=== PATIENT | female | born 1985 | race Caucasian/White ===

== ENCOUNTER 2019-05-02 16:18 | Emergency (ER) | payer OTHER, SELFPAY ==
[2019-05-02 16:32] VITALS: BP 150/95; PULSE 98; RESP 20; TEMP 37.3; O2SAT 98
--- NOTE | 2019-05-02 17:02 | ED.GENADULT ---
HPI - General Adult General Chief complaint: Extremity Injury, Lower Stated complaint: feet sollen Time Seen by Provider: 05/02/19 17:02 Source: patient and RN notes reviewed History of Present Illness HPI narrative: Patient is a 34-year-old female that presents the urgent care with complaints of bilateral feet swelling. Patient states that she woke up this morning with her feet swelling and has been working a lot. Patient denies any shortness of breath or chest pain. Denies any history of congestive heart failure or bilateral lower extremity swelling. Denies of any trauma or injury. Patient states that she is elevated the feet and soak them in warm water. No other acute complaints. No acute distress noted. Patient aware the plan of care. Related Data Home Medications Medication Instructions Recorded Confirmed buspirone 5 mg PO DAILY 02/07/19 05/02/19 levothyroxine 25 mcg PO DAILY 02/07/19 05/02/19 sertraline 50 mg PO DAILY 02/07/19 05/02/19 ziprasidone HCl 20 mg PO DAILY 02/07/19 05/02/19 Allergies Allergy/AdvReac Type Severity Reaction Status Date / Time No Known Allergies Allergy Unknown Verified 01/03/19 08:57 Review of Systems Review of Systems: Narrative: CONSTITUTIONAL: Denies fever, chills, or sweats. EYES: Denies visual changes, redness, or discharge. ENT: Denies rhinorrhea, congestion, sore throat, or otalgia. CARDIOVASCULAR: Denies chest pain, palpitations, or edema. RESPIRATORY: Denies cough or dyspnea. GASTROINTESTINAL: Denies abdominal pain, nausea, vomiting, or diarrhea. GENITOURINARY: Denies dysuria or hematuria. SKIN: Denies rash or itching. MUSCULOSKELETAL: Reports of bilateral feet swelling NEUROLOGIC: Denies headache, numbness, or weakness. All other systems reviewed are negative, except as documented in HPI. PMFSH Comments At the time of my signature, I reviewed and agree with the nursing past medical, surgical, social, and family history. There is no relevant family history pertinent to the patient complaint. Exam Narrative: Exam Narrative: GENERAL: This is a well-nourished, well-developed patient, in no apparent distress. HEAD: normocephalic, atraumatic. EYES: PERRL. Sclera clear/white. Vision is grossly intact. EARS: External ears normal NOSE: External nose normal with no obvious nasal discharge THROAT: Mucous membranes moist NECK: Neck supple CARDIOVASCULAR: Regular rate and rhythm without murmurs, gallops, or rubs. RESPIRATORY: Clear to auscultation. Breath sounds equal bilaterally. No wheezes, rales, or rhonchi. SKIN: warm, intact with no suspicious lesions or rash, good texture and turgor. NEURO: awake, alert, and oriented to person, place and time. There were no obvious focal neurologic abnormalities. EXTREMITIES: Nonpitting bilateral mild to moderate lower extremity edema. Positive strong bilateral pedal pulses with capillary refill less than 2 seconds. Course Vital Signs Vital signs: Vital Signs Temperature 99.2 F 05/02/19 16:32 Pulse Rate 98 05/02/19 16:32 Respiratory Rate 20 05/02/19 16:32 Blood Pressure 150/95 H 05/02/19 16:32 Pulse Oximetry 98 05/02/19 16:32 Temperature 99.2 F 05/02/19 16:32 Pulse Rate 98 05/02/19 16:32 Respiratory Rate 20 05/02/19 16:32 Blood Pressure 150/95 H 05/02/19 16:32 Pulse Oximetry 98 05/02/19 16:32 Reviewed?patient is informed that they may have pre-hypertension or hypertension based on a blood pressure reading in the department. I recommend the patient call the primary care provider listed on their discharge instructions or a physician of their choice this week to arrange follow-up for further evaluation of possible pre-hypertension or hypertension. Medical Decision Making MDM Narrative Medical decision making narrative: Spoke to the patient regarding lower extremity swelling. Advised the patient to keep bilateral feet elevated and may use compression stockings for relief. If you experience any increase in
== END 2019-05-02 17:15 | disposition home or self-care (01) ==
PROVIDERS: Emergency Provider Nurse Practitioner Family
DX: R60.9 Edema, unspecified (principal)
CPT/HCPCS: 99211; G0463

== ENCOUNTER 2019-06-17 15:23 | Outpatient (CLI) | payer OTHER, SELFPAY ==
[2019-06-17 15:48] LABS: Hematocrit 41.2 % (37.0-47.0)
== END 2019-06-17 15:24 | disposition home or self-care (01) ==
PROVIDERS: Visit Provider Anesthesiology
DX: R58 Hemorrhage, not elsewhere classified (principal)
CPT/HCPCS: 36415; 85014; 85018

== ENCOUNTER 2019-06-20 01:11 | Day surgery (SDC) | payer OTHER, SELFPAY ==
--- NOTE | 2019-06-15 09:24 | PM.IMHP ---
H&P: HPI History of Present Illness Chief complaint: Excessive Bleeding For 6 Weeks Narrative: Pam Stephenson is a 34 year old female admitted for hysteroscopy dilatation curettage secondary to 6 weeks of vaginal bleeding. She has a history of irregular bleeding and suspected polycystic ovaries. Risks and benefits of this procedure reviewed. Review of Systems Review of Systems: All systems reviewed & are unremarkable except as noted in HPI and below Meds Home Medications and Allergies Home Medications Medication Instructions Recorded Confirmed Type albuterol sulfate 2 puff INHALATION QID PRN #8 gm 02/07/19 05/02/19 Rx buspirone 5 mg PO DAILY 02/07/19 05/02/19 History fluticasone propionate [Flonase 2 spray NASAL DAILY #15.8 ml 02/07/19 05/02/19 Rx Allergy Relief] levothyroxine 25 mcg PO DAILY 02/07/19 05/02/19 History sertraline 50 mg PO DAILY 02/07/19 05/02/19 History ziprasidone HCl 20 mg PO DAILY 02/07/19 05/02/19 History Allergies Allergy/AdvReac Type Severity Reaction Status Date / Time No Known Allergies Allergy Unknown Verified 01/03/19 08:57 Exam Const: General: no acute distress Eyes: General: appearance normal, both eyes and all related structures Neck: Neck: supple and no JVD Thyroid: thyroid normal Resp: Effort & Inspection: normal respiratory effort Auscultation: clear to auscultation bilaterally Cardio: Rate: regular rate Rhythm: regular rhythm GI: Inspection: non-distended GI Palp: Yes Soft to palpation, No Tenderness to palpation present (GI) and No Guarding due to palpation present (GI) Auscultation: normal bowel sounds : Speculum Exam - Vagina: normal appearance of the vagina and vaginal bleeding Skin: General skin exam: no rashes or lesions noted Extrem: General: normal to inspection and no edema Psych: Mental Status: mental status grossly normal Affect: normal affect Assessment and Plan Additional Plan Impression: Vaginal bleeding refractory to medical therapy Plan: Hysteroscopy dilatation curettage
[2019-06-17 08:44] VITALS: BMI 54.6
[2019-06-20] VITALS (8 sets, daily range): BP systolic 118–149; BP diastolic 57–83; PULSE 68–94; RESP 14–20; TEMP 36.3–36.5; O2SAT 93–100
--- NOTE | 2019-06-20 06:40 | WPDHPUPDATE1 ---
History and Physical Update Update Date/Time: 06/20/19 06:40 History and Physical has been reviewed, including an updated exam of the patient. There are NO changes in the patient's condition. Risks, benefits, and alternatives have been discussed and questions answered. Patient agrees to proceed with procedure.
[2019-06-20] MEDS: LACTATED RINGERS 1,000 ML 30 ML IV CONT (08:15)
--- NOTE | 2019-06-20 08:16 | WPDANESEPPF ---
Anes - Initial Pre Proc Eval Procedure: Operation Date: 06/20/19 09:30 Proposed Procedures p Hysteroscopy, Dilation and Curettage - Jn Hickey MD Date/Time: 06/20/19 08:16 Surgeon: Jn Hickey MD Pre Op Diagnosis: Excessive Bleeding For 6 Weeks Patient Data Age: 34 Gender: F Height: 5 ft 3 in Weight: 147.7 kg Last Vital Signs Temp 36.5 C 06/20/19 08:00 Pulse 94 06/20/19 08:00 Resp 16 06/20/19 08:00 BP 148/83 H 06/20/19 08:00 Pulse Ox 97 06/20/19 08:00 Allergies Allergy/AdvReac Type Severity Reaction Status Date / Time No Known Allergies Allergy Unknown Verified 01/03/19 08:57 Home Medications Medication Instructions Recorded Confirmed Type hydrocodone-acetaminophen [[place]] 1 tablet PO Q4H PRN #20 tablet 06/20/19 Rx Patient hx anesthesia problems: none Family hx anesthesia problems: none PMFSH Past Medical History Medical History Morbid obesity Smoker Social History Social History Gender identity (if verbalized by the patient): Female Anes - Eval Final PreProcedure Day of Procedure 06/20/19 08:16 Patient weight: super morbidly obese Heart: regular rate and rhythm Lungs: clear to auscultation Airway: Mallampati scale class 1 Neurological: alert and oriented Last oral intake: >/= 8 hours ASA classification: III Anesthetic plan: proceed Anesthesia type and monitoring: general LMA and standard monitoring Informed Consent: The patient's anesthetic plan and its attendant risks and benefits were discussed with the patient/family/POA. Questions were solicited and answers provided to the satisfaction of the patient/family/POA.
[2019-06-20] MEDS: KETOROLAC 30 MG/ML VIAL (*BKC) IV PUSH (09:48)
--- NOTE | 2019-06-20 09:50 | PM.PROC ---
Procedure Note - Detailed Date of procedure: 06/20/19 Pre-op diagnosis: Excessive Bleeding For 6 Weeks Surgeon: Jn Hickey MD Postop diagnosis excessive bleeding for 6 weeks Procedure: Hysteroscopy, dilatation curettage Anesthesia: LMA EBL: 5cc : Complications: None Findings: Uterus sounded to 12cm. Thick endometrial tissue Description of procedure the patient was prepped and draped in the normal sterile fashion and placed in the dorsal lithotomy position. Under excellent general anesthesia weighted speculum placed in the posterior fornix of vagina. Anterior lip of the cervix was grasped with single-tooth tenaculum. 2.5cc of 1% xylocaine anesthesia placed at 2, 4, 6, 8:00 a.m. of the cervix. The uterus sounded to 12cm. Serial dilatation with fragmented dilators performed. The 5mm visualizing hysteroscope was inserted using normal saline as visualizing medium. Thick irregular endometrial tissue could be seen P. Each fallopian tube os could be seen. The uterus was then scraped over the entire 360? until a good grating sound was heard. When no further tissue could be removed, the instruments removed. The patient was awakened. All sponge, needle, instrument counts were correct. There were no immediate complications
== END 2019-06-20 11:32 | disposition home or self-care (01) ==
PROVIDERS: Visit Provider Obstetrics & Gynecology
PROC: 0U5B8ZZ Destruction of Endometrium, Via Natural or Artificial Opening Endoscopic (ICD-10-PCS; CPT 58563; principal; 2019-06-20 09:30)
DX: N93.9 Abnormal uterine and vaginal bleeding, unspecified (principal); Z72.0 Tobacco use; E66.01 Morbid (severe) obesity due to excess calories; Z68.43 Body mass index [BMI] 50.0-59.9, adult
CPT/HCPCS: 58558; 88305; A9270; J0131; J1885; J2250; J2405; J2704; J3010; J7030; J7120

== ENCOUNTER 2019-07-08 06:30 | Outpatient (CLI) | payer OTHER, SELFPAY ==
[2019-07-08 16:20] LABS: SARS-CoV-2 RNA PCR Negative
== END 2019-07-08 06:31 | disposition home or self-care (01) ==
LOC: ANHCOVIDDT 06:30
PROVIDERS: Visit Provider Obstetrics & Gynecology
DX: Z01.818 Encounter for other preprocedural examination (principal); Z11.59 Encounter for screening for other viral diseases
CPT/HCPCS: 85025; 86850; 86900; 86901; 87635; 93005; C9803; U0003

== ENCOUNTER 2019-07-08 09:37 | Outpatient (CLI) | payer OTHER, SELFPAY ==
--- NOTE | 2019-07-08 10:17 | ECG_ITS ---
Measurements Intervals [place] Rate: 93 P: 44 FL: 146 QRS: 31 QRSD: 83 T: 13 QT: 336 QTc: 419 Interpretive Statements SINUS RHYTHM WITH SINUS ARRHYTHMIA BORDERLINE ST ABNORMALITY- ANTEROLATERAL LEADS BORDERLINE ECG Electronically Signed On 07-08-2019 10:28:53 CDT by Jeffrey Luis D.O.
[2019-07-08 10:36] LABS: Basophils Absolute Auto 0.1 K/mm3 (0.0-0.1); Basophils Percent Auto 0.5 % (0.2-1.2); Eosinophils Absolute Auto 0.2 K/mm3 (0-0.3); Hematocrit 32.7 % (37.0-47.0); Hemoglobin 10.5 g/dL (12.0-15.0); Immature Granulocyte Absolute 0.07 K/mm3 (0.00-0.031); Immature Granulocyte Percent A 0.7 % (0-0.5); Lymphocytes Absolute Auto 2.58 K/mm3 (0.9-3.2); Lymphocytes Percent Auto 25.9 % (18.3-44.2); Mean Corpuscular HGB Conc 32.1 g/dl (32-36); Mean Corpuscular Hemoglobin 28.3 pg (26-34); Mean Corpuscular Volume 88.1 fl (80-100); Mean Platelet Volume 10.1 fl (7.4-10.4); Monocytes Absolute Auto 0.7 K/mm3 (0.1-0.6); Monocytes Percent Auto 6.7 % (2.6-8.5); Neutrophils Absolute Auto 6.4 K/mm3 (1.3-6.7); Neutrophils Percent Auto 64.2 % (45.5-73.1); Platelet Count Result 372 k/mm3 (150-375); Red Blood Count 3.71 M/mm3 (4.2-5.4); Red Cell Distribution Width 13.4 % (11.5-14.5)
== END 2019-07-08 09:38 | disposition home or self-care (01) ==
PROVIDERS: Visit Provider Obstetrics & Gynecology
DX: Z01.818 Encounter for other preprocedural examination (principal); N93.9 Abnormal uterine and vaginal bleeding, unspecified; E66.01 Morbid (severe) obesity due to excess calories
CPT/HCPCS: 36415; 85025; 86850; 86900; 86901; 93005

== ENCOUNTER 2019-07-11 00:26 | Day surgery (SDC) | payer OTHER, SELFPAY ==
[2019-07-06 09:37] VITALS: BMI 56.7
--- NOTE | 2019-07-06 12:44 | PM.IMHP ---
H&P: HPI History of Present Illness Chief complaint: pain, enlarged uterus,Excessive Bleed Narrative: Pam Stephenson is a 34 year old female who has had 2 previous D and C's and has been bleeding for more than 2 months. She had negative test at home she has had mild pain with intercourse but she will not stop bleeding. We 1st attempted to follow-up with progesterone and warrant successful this was followed by a control pill and she still continues to bleed. She has elevated blood pressures and is morbidly obese and is thus not a candidate to continued pill. She understands this will make her permanently infertile. Risks and benefits reviewed including but not exclusive of , aspiration pneumonia, bleeding, transfusion, perforation injury to bowel, bladder, ureters, or other internal organs with need for open laparotomy. She voiced good understanding. She had all questions answered. She asked to proceed. She did received the [employer] handout entitled hysterectomy as well as the [facility] handout Review of Systems Review of Systems: All systems reviewed & are unremarkable except as noted in HPI and below PMFSH Past Medical History Medical History Morbid obesity Smoker Social History Social History Gender identity (if verbalized by the patient): Female Meds Home Medications and Allergies Home Medications Medication Instructions Recorded Confirmed Type hydrocodone-acetaminophen [[place]] 1 tablet PO Q4H PRN #20 tablet 06/20/19 07/06/19 Rx Allergies Allergy/AdvReac Type Severity Reaction Status Date / Time No Known Allergies Allergy Unknown Verified 07/06/19 09:29 Exam Const: General: no acute distress Eyes: General: appearance normal, both eyes and all related structures Neck: Neck: supple and no JVD Thyroid: thyroid normal Resp: Effort & Inspection: normal respiratory effort Auscultation: clear to auscultation bilaterally Cardio: Rate: regular rate Rhythm: regular rhythm GI: Inspection: normal to inspection, P[place]us present and obesity Percussion: Yes normal to percussion : External Female Exam: normal external appearance Speculum Exam - Vagina: normal appearance of the vagina Speculum Exam - Cervix: normal appearance of the cervix Bimanual exam- vagina & uterus: boggy and Uterine tenderness Bimanual Exam- Adnexa, other: normal adnexae Skin: General skin exam: no rashes or lesions noted Extrem: General: normal to inspection and no edema Psych: Mental Status: mental status grossly normal Affect: normal affect Assessment and Plan Additional Plan impression: Enlarged uterus with continuous bleeding despite previous surgical and medical therapy Plan: Robotic total vaginal hysterectomy and bilateral salpingectomy
[2019-07-11] VITALS (18 sets, daily range): BP systolic 127–184; BP diastolic 66–108; PULSE 73–118; RESP 18–39; TEMP 35.8–37.3; O2SAT 93–100
--- NOTE | 2019-07-11 06:33 | P.PNAN_ITS ---
Anes - Initial Pre Proc Eval Procedure: Operation Date: 07/11/19 07:30 Proposed Procedures p Robotic Assisted Total Vaginal Hysterectomy, Bilateral Salpingo-Oophorectomy - Jn Hickey MD Date/Time: 07/11/19 06:33 Surgeon: Jn Hickey MD Pre Op Diagnosis: pain, enlarged uterus,Excessive Bleed Patient Data Age: 34 Gender: F Height: 5 ft 3 in Weight: 145.45 kg Allergies Allergy/AdvReac Type Severity Reaction Status Date / Time No Known Allergies Allergy Unknown Verified 07/06/19 09:29 Home Medications Medication Instructions Recorded Confirmed Type hydrocodone-acetaminophen [[place]] 1 tablet PO Q4H PRN #20 tablet 06/20/19 07/06/19 Rx Patient hx anesthesia problems: none Family hx anesthesia problems: none PMFSH Past Medical History Medical History Morbid obesity Smoker Social History Social History Gender identity (if verbalized by the patient): Female Anes - Eval Final PreProcedure Day of Procedure 07/11/19 06:33 Patient weight: morbidly obese Heart: regular rate and rhythm Lungs: clear to auscultation Airway: Mallampati scale class 1 Neurological: alert and oriented Last oral intake: >/= 8 hours ASA classification: III Emergent: no Anesthetic plan: proceed Anesthesia type and monitoring: general ETT and standard monitoring Informed Consent: The patient's anesthetic plan and its attendant risks and benefits were discussed with the patient/family/POA. Questions were solicited and answers provided to the satisfaction of the patient/family/POA.
--- NOTE | 2019-07-11 06:35 | WPDHPUPDATE1 ---
History and Physical Update Update Date/Time: 07/11/19 06:35 History and Physical has been reviewed, including an updated exam of the patient. There are NO changes in the patient's condition. Risks, benefits, and alternatives have been discussed and questions answered. Patient agrees to proceed with procedure.
[2019-07-11] MEDS: LACTATED RINGERS 1,000 ML 30 ML IV CONT ×2 (07:00→09:22)
[2019-07-11] MEDS: ceFAZolin 3 GM/D5W 100 ML 100 ML IVPB (08:19)
--- NOTE | 2019-07-11 09:08 | PM.PROC ---
Procedure Note - Detailed Date of procedure: 07/11/19 Pre-op diagnosis: pain, enlarged uterus,Excessive Bleed Surgeon: Jn Hickey MD Postop diagnosis: Pain/enlarged uterus/bleeding refractory to medical therapy Procedure: Robotic total vaginal hysterectomy/bilateral salpingectomies EBL: 100cc Findings: Enlarged uterus/thick fallopian tubes/normal-appearing ovaries Complications: None Anesthesia: General endotracheal Description of procedure: The patient was prepped and draped in the normal sterile fashion placed in the dorsal lithotomy position. Under excellent general endotracheal anesthesia weighted speculum was placed in the posterior fornix of vagina. Anterior lip of the cervix grasped with single-tooth tenaculum. Uterus sounded to 10cm. Serial dilatation with fragmented dilators performed. This was followed by passage of the 8. ROSINA and the 3. Cold cup. Next the 16 Romanian catheter was placed in the bladder draining clear urine. The weighted speculum was removed. The gloves were changed. A supraumbilical incision was made. Veress needle passed in the abdomen. Abdomen filled with CO2 gas [id number]. The 8mm trocar was advanced in the abdomen. The downside visualized. No injury seen. The patient placed in Trendelenburg. Right and left lateral quadrant incisions made in the 8mm trocars advanced under direct visualization. A right upper quadrant incision made in the 10mm trocar advanced under direct visualization assuring no injury. The robot was docked attention was turned to the certified alcohol counselor. The left fallopian tube was teased from ovary and dissected to its entry into the uterus. In like fashion the right fallopian tube was dissected from the right ovary and brought to the entry of the uterus. The left round ligament was grasped, burned, cut anteriorly a bladder flap was formed by sharply dissecting the bladder away caudally exposing the cervix to the opposite round ligament which was clamped, burned, cut. Next conserving the left ovary the utero-ovarian ligament on the left was clamped, burned, cut and brought to the level of the previously cut round ligament. Conserving the right ovary the right utero-ovarian ligament was clamped, burned, cut and brought to the level of the previously cut round ligament. Next the left cardinal and broad ligaments were serially skeletonized down the lateral edge of the uterus clamping, cutting and burning. This was brought to the level of the uterine vessels on that side which were large and tortuous consistent with a large irregular shaped uterus. These were individually clamped, burned, cut. In like fashion the cardinal and broad ligaments on the right were serially skeletonized. Clamped, burned, cut and brought down to the level of the uterine vessels. The uterine vessels were then individually clamped, burned, cut. Blanching the uterus was seen a colpotomy incision was made in the cervix uterus and tubes removed through the vagina. Blood loss estimated at [id number] at that point. The vagina was closed with continuous running 0V lock from lateral edge to lateral edge and back to the midline. Irrigation undertaken to clear. All pedicles appeared dry. The robot was undocked. The gas removed from the abdomen. The trocars removed. The incisions closed with 4 O Monocryl and glue. The patient was awakened. She went to recovery in satisfactory condition. All sponge, needle, instrument counts were correct. There were no immediate complications
[2019-07-11] MEDS: DEXTROSE 5%/LACTATED RINGERS 1,000 ML 125 ML IV CONT (10:56)
[2019-07-11] MEDS: KETOROLAC 30 MG/ML VIAL (*BKC) IV PUSH ×2 (10:59→17:03)
[2019-07-11] MEDS: MORPHINE SULFATE 4 MG/ML INJ IV PUSH ×2 (11:00→17:04)
--- NOTE | 2019-07-11 13:23 | PC.NURSE ---
This patient, Pam Stephenson, was received from PACU on 07/11/19 at 1048. Personal belongings list checked and signed. Patient/family oriented to unit policies and routines
[2019-07-11] MEDS: DOCUSATE SODIUM 100 MG CAPSULE PO (17:02)
[2019-07-11] MEDS: SIMETHICONE 80 MG TAB.CHEW PO (17:02)
[2019-07-12 00:50] VITALS: BP 136/70; PULSE 93; RESP 18; TEMP 36.9; O2SAT 95
[2019-07-12 05:20] VITALS: BP 145/81; PULSE 91; RESP 18; TEMP 37.1; O2SAT 96
[2019-07-12 05:43] LABS: Basophils Percent Auto 0.2 % (0.2-1.2); Eosinophils Absolute Auto 0.2 K/mm3 (0-0.3); Eosinophils Percent Auto 1.3 % (0-4.4); Hematocrit 26.3 % (37.0-47.0); Hemoglobin 8.3 g/dL (12.0-15.0); Immature Granulocyte Absolute 0.07 K/mm3 (0.00-0.031); Immature Granulocyte Percent A 0.6 % (0-0.5); Lymphocytes Absolute Auto 2.25 K/mm3 (0.9-3.2); Lymphocytes Percent Auto 18.5 % (18.3-44.2); Mean Corpuscular HGB Conc 31.6 g/dl (32-36); Mean Corpuscular Hemoglobin 28.2 pg (26-34); Mean Corpuscular Volume 89.5 fl (80-100); Monocytes Absolute Auto 0.7 K/mm3 (0.1-0.6); Monocytes Percent Auto 5.5 % (2.6-8.5); Neutrophils Percent Auto 73.9 % (45.5-73.1); Platelet Count Result 319 k/mm3 (150-375); Red Blood Count 2.94 M/mm3 (4.2-5.4); Red Cell Distribution Width 13.2 % (11.5-14.5); White Blood Count 12.2 K/mm3 (4.5-10.0)
--- NOTE | 2019-07-12 06:40 | PM.OBPNVD ---
OB - PN: Subj Subjective Date/time seen: 07/12/19 06:40 Patient comments: no complaints and pain well controlled OB - PN: Obj Data Labs CBC & Chem 7: 07/12/19 05:10 Labs: Laboratory Results - last 24 hr 07/12/19 05:10 WBC 12.2 H RBC 2.94 L Hgb 8.3 L Hct 26.3 L MCV 89.5 MCH 28.2 MCHC 31.6 L RDW 13.2 Plt Count 319 MPV 10.0 Immature Gran % (Auto) 0.6 H Neut % (Auto) 73.9 H Lymph % (Auto) 18.5 [place] % (Auto) 5.5 Eos % (Auto) 1.3 Baso % (Auto) 0.2 Lymph # (Auto) 2.25 [place] # (Auto) 0.7 H Eos # (Auto) 0.2 Baso # (Auto) 0.0 Abs Immat Gran (auto) 0.07 H Absolute Neuts (auto) 9.0 H Absolute Nucleated RBC 0.0 Nucleated RBC % 0.0 OB - PN A/P Plan day: 1 Plan: discharge home and follow up 6 weeks (2 weeks) Time Spent With Patient Time: Total time spent is greater than 50% in coordination of care (as documented) at patient's floor/unit and/or counseling patient: Time with patient: less than 15 minutes Review of Systems Review of Systems: All systems reviewed & are unremarkable except as noted in HPI and below Exam Const: General: no acute distress Eyes: General: appearance normal, both eyes and all related structures Neck: Neck: supple and no JVD Thyroid: thyroid normal Resp: Effort & Inspection: normal respiratory effort Auscultation: clear to auscultation bilaterally Cardio: Rate: regular rate Rhythm: regular rhythm GI: Inspection: normal to inspection and incision (wounds cdi) Percussion: Yes normal to percussion : General: Yes bladder normal to palpation External Female Exam: normal external appearance Speculum Exam - Vagina: normal vaginal discharge and No vaginal bleeding Speculum Exam - Cervix: nontender Bimanual exam- vagina & uterus: bladder normal to palpation and No Cervical tenderness present OB/external & speculum: No vaginal bleeding Skin: General skin exam: no rashes or lesions noted Extrem: General: normal to inspection and no edema Psych: Mental Status: mental status grossly normal Affect: normal affect
--- NOTE | 2019-07-12 06:42 | PM.DS ---
DS: Diagnosis Admitting Diagnosis Admitting Diagnosis: Abnormal uterine and vaginal bleeding, unspecified DS: Summary Time Spent with Patient Time attestation: Total time spent providing and/or coordinating discharge services: Exam Const: General: no acute distress Eyes: General: appearance normal, both eyes and all related structures Neck: Neck: supple and no JVD Thyroid: thyroid normal Resp: Effort & Inspection: normal respiratory effort Auscultation: clear to auscultation bilaterally Cardio: Rate: regular rate Rhythm: regular rhythm GI: Inspection: non-distended GI Palp: Yes Soft to palpation, No Tenderness to palpation present (GI) and No Guarding due to palpation present (GI) Auscultation: normal bowel sounds : General: Yes bladder normal to palpation External Female Exam: normal external appearance Speculum Exam - Vagina: normal vaginal discharge and No vaginal bleeding Speculum Exam - Cervix: nontender Bimanual exam- vagina & uterus: bladder normal to palpation and No Cervical tenderness present OB/external & speculum: No vaginal bleeding Skin: General skin exam: no rashes or lesions noted Extrem: General: normal to inspection and no edema Psych: Mental Status: mental status grossly normal Affect: normal affect DS: Data Data Completed and Pending Pending studies at discharge: Pending at discharge 07/11/19 08:49 Surgical [PTH] Routine Labs on day of discharge: Labs from last 24 hours 07/12/19 05:10 WBC 12.2 H RBC 2.94 L Hgb 8.3 L Hct 26.3 L MCV 89.5 MCH 28.2 MCHC 31.6 L RDW 13.2 Plt Count 319 MPV 10.0 Immature Gran % (Auto) 0.6 H Neut % (Auto) 73.9 H Lymph % (Auto) 18.5 [place] % (Auto) 5.5 Eos % (Auto) 1.3 Baso % (Auto) 0.2 Lymph # (Auto) 2.25 [place] # (Auto) 0.7 H Eos # (Auto) 0.2 Baso # (Auto) 0.0 Abs Immat Gran (auto) 0.07 H Absolute Neuts (auto) 9.0 H Absolute Nucleated RBC 0.0 Nucleated RBC % 0.0 Discharge Plan Discharge Patient Disposition: Home, Self-Care Stand Alone Forms: General Discharge Instructions Follow-up/Referrals: Jn Hickey MD [Physician] - Discharge Medications: New hydrocodone-acetaminophen [[place]] 5-325 mg tablet 1 tablet PO Q4H PRN (Reason: pain) Qty: 30 RF: 0 Continued hydrocodone-acetaminophen [[place]] 5-325 mg tablet 1 tablet PO Q4H PRN (Reason: pain) Qty: 20 RF: 0
[2019-07-12 08:00] VITALS: BP 149/86; PULSE 86; RESP 18; TEMP 37; O2SAT 100
[2019-07-12] MEDS: DOCUSATE SODIUM 100 MG CAPSULE PO (08:26)
[2019-07-12] MEDS: ENOXAPARIN 40 MG/0.4 ML SYRINGE SUB-Q (08:26)
[2019-07-12] MEDS: KETOROLAC 30 MG/ML VIAL (*BKC) IV PUSH (08:27)
[2019-07-12] MEDS: SIMETHICONE 80 MG TAB.CHEW PO (08:28)
--- NOTE | 2019-07-12 08:46 | WPDANESPN ---
Anes - Prog Note Post-Op Date/Time: 07/12/19 08:46 Cardiovascular status: normal Respiratory status: normal Airway patency: baseline Mental status: baseline Post-Op hydration status: normal Vital Signs: Last Vital Signs Temp 37.0 C 07/12/19 08:00 Pulse 86 07/12/19 08:00 Resp 18 07/12/19 08:00 BP 149/86 H 07/12/19 08:00 Pulse Ox 100 07/12/19 08:00 I/O: Intake & Output 07/11/19 07/12/19 07/12/19 23:59 07:59 15:59 Intake Total 400 1940 800 Output Total 600 1150 500 Balance -200 790 300 Laboratory Tests 07/12/19 05:10 07/12/19 05:10 WBC 12.2 H RBC 2.94 L Hgb 8.3 L Hct 26.3 L MCV 89.5 MCH 28.2 MCHC 31.6 L RDW 13.2 Plt Count 319 MPV 10.0 Immature Gran % (Auto) 0.6 H Neut % (Auto) 73.9 H Lymph % (Auto) 18.5 [place] % (Auto) 5.5 Eos % (Auto) 1.3 Baso % (Auto) 0.2 Lymph # (Auto) 2.25 [place] # (Auto) 0.7 H Eos # (Auto) 0.2 Baso # (Auto) 0.0 Abs Immat Gran (auto) 0.07 H Absolute Neuts (auto) 9.0 H Absolute Nucleated RBC 0.0 Nucleated RBC % 0.0 Post-procedural complaints: none Patient Feedback: Patient satisfied with anesthetic care.
--- NOTE | 2019-07-12 10:16 | PC.NURSE ---
Self discharge instructions given to pt. including when to return to see Dr. Haris Hightower. Pt. verbalized understanding. No questions or concerns voiced. Prescription sent with pt.
== END 2019-07-12 11:43 | disposition home or self-care (01) ==
LOC: ANHSURGERY 06:36 → ANHOB2 10:50
PROVIDERS: Visit Provider Obstetrics & Gynecology
PROC: (CPT 58552; principal; 2019-07-11 07:30)
DX: N93.9 Abnormal uterine and vaginal bleeding, unspecified (principal); R10.2 Pelvic and perineal pain; N73.6 Female pelvic peritoneal adhesions (postinfective); N83.8 Other noninflammatory disorders of ovary, fallopian tube and broad ligament; F17.210 Nicotine dependence, cigarettes, uncomplicated; E66.01 Morbid (severe) obesity due to excess calories; Z68.43 Body mass index [BMI] 50.0-59.9, adult
CPT/HCPCS: 58552; S2900; 36415; 85025; 88307; 99199; A9270; J0330; J0690; J1170; J1650; J1885; J2001; J2250; J2270; J2405; J2704; J2710; J3010; J7030; J7120; J7121

== ENCOUNTER 2019-11-11 10:10 | Emergency (ER) | payer OTHER, SELFPAY ==
[2019-11-11 10:13] VITALS: BP 154/78; PULSE 85; RESP 20; TEMP 36.7; O2SAT 98
--- NOTE | 2019-11-11 10:25 | ED.URI ---
HPI - URI/Sore Throat General Chief Complaint: Upper Respiratory Infection Stated Complaint: sore throat and ear pain Time Seen by Provider: 11/11/19 10:26 Source: patient History of Present Illness HPI Narrative: Patient presents with sore throat and ear pain. Patient states her symptoms have been going on for the last 2 days. Patient denies any runny nose no cough no fever no increased fatigue no loss of taste or smell. Patient denies any COVID-19 exposure. Patient denies any drooling and no trouble swallowing. Patient does not take anything [id number] for symptoms. Related Data Allergies Allergy/AdvReac Type Severity Reaction Status Date / Time No Known Allergies Allergy Unknown Verified 11/11/19 10:25 Review of Systems Review of Systems: Narrative: CONSTITUTIONAL: Denies fever, chills, or sweats. EYES: Denies visual changes, redness, or discharge. ENT: Denies rhinorrhea, congestion, patient reports sore throat and ear pain CARDIOVASCULAR: Denies chest pain, palpitations, or edema. RESPIRATORY: Denies cough or dyspnea. GASTROINTESTINAL: Denies abdominal pain, nausea, vomiting, or diarrhea. GENITOURINARY: Denies dysuria or hematuria. SKIN: Denies rash or itching. MUSCULOSKELETAL: Denies back pain, joint pain, or myalgia. NEUROLOGIC: Denies headache, numbness, or weakness. PSYCHIATRIC: Denies anxiety or depression. [facility] Social History Social History Gender identity (if verbalized by the patient): Female Comments At time of signature, agree with nursing past medical, surgical, social and family history. There is no relevant family history pertinent to the presenting complaint Exam Narrative: Exam Narrative: GENERAL: Well-appearing, well-nourished, and in no acute distress. HEAD: Normocephalic, atraumatic. EYES: PERRLA and EOMI. ENT: Nares clear, no rhinorrhea or epistaxis. Mucous membranes moist. Moderate pharyngeal erythremia no exudate no trismus able to open mouth fully mild dullness to left ear TM. NECK: Supple. CHEST: Clear to auscultation. No respiratory distress. HEART: Regular rate and rhythm. No murmur heard. Normal peripheral pulses. ABDOMEN: Soft, nontender, nondistended, normal active bowel sounds. EXTREMITIES: Normal range of motion. No edema. SKIN: Warm, dry, no rash. NEURO: No focal deficits. Alert and oriented x3. [place] Coma Scale Eye Opening: Spontaneous 4 Jessie Coma Scale Motor: Obeys Commands 6 Jessie Coma Scale Verbal: Oriented 5 [place] Coma Scale Total 15 Course Vital Signs Vital signs: Vital Signs Temperature 36.7 C 11/11/19 10:13 Pulse Rate 85 11/11/19 10:13 Respiratory Rate 11/11/19 10:13 Blood Pressure 154/78 H 11/11/19 10:13 Pulse Oximetry 98 11/11/19 10:13 Temperature 36.7 C 11/11/19 10:13 Pulse Rate 85 11/11/19 10:13 Respiratory Rate 11/11/19 10:13 Blood Pressure 154/78 H 11/11/19 10:13 Pulse Oximetry 98 11/11/19 10:13 Please LISA schedule a followup visit with your personal physician for further evaluation and treatment. Including recheck and discussion of your blood pressure. If your symptoms persist, change or worsen significantly before you can contact your personal physician then please, without delay, go to the emergency department for further evaluation MDM - URI/Sore Throat Differential Diagnosis Differential diagnosis: Likely upper respiratory infection, otitis media, sinusitis, viral infection, bronchitis, influenza and pharyngitis Lab Data Labs: Strep Screen Positive Group A Strep *(Reference Range: Negative)* Critical Care Time Critical Care Time Critical Care Time: No Discharge Plan Discharge Clinical Impression: Pharyngitis, Eustachian tube dysfunction, Strep pharyngitis Patient Disposition: Home, Self-Care Condition: Stable Instructions: Antibiotic Form Additional Instructions: Increase fluids especially ju
== END 2019-11-11 10:36 | disposition home or self-care (01) ==
PROVIDERS: Emergency Provider Nurse Practitioner Family
DX: J02.0 Streptococcal pharyngitis (principal); H69.92 Unspecified Eustachian tube disorder, left ear
CPT/HCPCS: 87880; 99213; G0463

== ENCOUNTER 2020-02-17 10:24 | Emergency (ER) | payer OTHER, SELFPAY ==
[2020-02-17 10:43] VITALS: BP 165/92; PULSE 91; RESP 16; TEMP 37.3; O2SAT 99
--- NOTE | 2020-02-17 11:12 | ED.HA ---
HPI - Headache General Chief Complaint: Headache Stated Complaint: Migraine Source: patient Mode of arrival: ambulatory Limitations: no limitations History of Present Illness HPI Narrative: Patient is a 34-year-old female who presents complaining of migraine x2 days. She reports taking Fioricet and Compazine in the past with relief. She reports PCP is refusing to refill prescription until patient completes CT.. She presents reporting photophobia and mild nausea. She denies all other complaints MD elicited complaint: headache and migraine Related Data Home Medications Medication Instructions Recorded Confirmed No Home Medications 02/17/20 02/17/20 Allergies Allergy/AdvReac Type Severity Reaction Status Date / Time No Known Allergies Allergy Unknown Verified 02/17/20 10:52 Review of Systems Review of Systems: Narrative: CONSTITUTIONAL: Denies fever, chills, or sweats. EYES: Denies visual changes, redness, or discharge. ENT: Denies rhinorrhea, congestion, sore throat, or otalgia. CARDIOVASCULAR: Denies chest pain, palpitations, or edema. RESPIRATORY: Denies cough or dyspnea. GASTROINTESTINAL: Denies abdominal pain, nausea, vomiting, or diarrhea. GENITOURINARY: Denies dysuria or hematuria. SKIN: Denies rash or itching. MUSCULOSKELETAL: Denies back pain, joint pain, or myalgia. NEUROLOGIC: Reports headache, denies numbness, dizziness, or weakness. PSYCHIATRIC: Denies anxiety or depression. PMFSH Past Medical History Medical History Abnormal uterine bleeding Anxiety Back pain Depression Diabetes Fractures Hypothyroidism Kidney stone Morbid obesity PID (acute pelvic inflammatory disease) Smoker Urinary tract infection Surgical History Surgical History H/O dilation and curettage H/O: Hx of cholecystectomy Family History Family History Other Diabetes mellitus Social History Social History (Updated 02/17/20 @ 11:15 by GAB Kearns) Smoking status: Current every day smoker Alcohol intake: current Substance use: never Gender identity (if verbalized by the patient): Female Exam Narrative: Exam Narrative: GENERAL: Well-appearing, well-nourished, and in no acute distress. HEAD: Normocephalic, atraumatic. EYES: EOMI. No redness or drainage. Conjunctiva are normal. ENT: Mucous membranes pink and moist. CHEST: No respiratory distress. HEART: Regular rate and rhythm. No murmur appreciated. Normal peripheral pulses. EXTREMITIES: Normal range of motion. SKIN: Warm, dry, no rash. NEURO: No focal deficits. Alert and oriented x3. Gait steady. PSYCH: Normal affect. No signs of depression or anxiety. Course Vital Signs Vital signs: Vital Signs Temperature 37.3 C 02/17/20 10:43 Pulse Rate 91 02/17/20 10:43 Respiratory Rate 16 02/17/20 10:43 Blood Pressure 165/92 H 02/17/20 10:43 Pulse Oximetry 99 02/17/20 10:43 Temperature 37.3 C 02/17/20 10:43 Pulse Rate 91 02/17/20 10:43 Respiratory Rate 16 02/17/20 10:43 Blood Pressure 165/92 H 02/17/20 10:43 Pulse Oximetry 99 02/17/20 10:43 MDM - Headache MDM Narrative Medical decision making narrative: Patient most likely has a migraine. Patient has never followed up for further evaluation of migraines with PCP. Patient requesting Compazine and Fioricet, patient's PCP refusing to refill prescription, therefore that prescription will not be refilled by urgent care at this time as well. Discussed with patient other methods of migraine relief. Discussed the need for further evaluation by PCP. Patient is aware that if her headache increases to a pain level of 10/10, she has visual difficulties or neuro complaints that she is to go to the ED as soon as possible for further evaluation. Patient's blood pressure is also elevated at t
[2020-02-17] MEDS: KETOROLAC (*BKC) 60 MG/2 ML VIAL IM (11:24)
[2020-02-17] MEDS: ONDANSETRON HCL ODT 4 MG TABLET PO (11:30)
--- NOTE | 2020-02-17 11:39 | PC.NURSE ---
1125-- tylenol 1000mg po given to pt. verified by olivia bazzi rn. could not scan on computer correctly.
== END 2020-02-17 11:44 | disposition home or self-care (01) ==
PROVIDERS: Emergency Provider Nurse Practitioner
DX: R51.9 Headache, unspecified (principal); F17.200 Nicotine dependence, unspecified, uncomplicated; E11.9 Type 2 diabetes mellitus without complications; E03.9 Hypothyroidism, unspecified; E66.01 Morbid (severe) obesity due to excess calories; Z68.35 Body mass index [BMI] 35.0-35.9, adult
CPT/HCPCS: 96372; 99213; A9270; G0463; J1885

== ENCOUNTER 2020-08-24 16:18 | Emergency (ER) | payer OTHER, SELFPAY ==
[2020-08-24 16:28] VITALS: BP 146/87; PULSE 93; RESP 16; TEMP 36.9; O2SAT 98
--- NOTE | 2020-08-24 16:57 | ED.HA ---
HPI - Headache General Chief Complaint: Headache Stated Complaint: Headache Time Seen by Provider: 08/24/20 16:55 Source: patient Mode of arrival: ambulatory Limitations: no limitations History of Present Illness HPI Narrative: Pam Stephenson is a 35 yo female with a history of migraine headache, hypertension , hypothyroid [facility]. She has photosensitivity; not had Imitrex or other kinds of headache medication in the past. She was set up for a neurology appointment but did not make the appointment Related Data Home Medications Medication Instructions Recorded Confirmed cholecalciferol (vitamin D3) 50 mcg PO DAILY 08/24/20 08/24/20 [Vitamin D3] levothyroxine 50 mcg PO DAILY 08/24/20 08/24/20 lisinopril 10 mg PO DAILY 08/24/20 08/24/20 Allergies Allergy/AdvReac Type Severity Reaction Status Date / Time No Known Allergies Allergy Unknown Verified 08/24/20 16:41 Review of Systems Review of Systems: Narrative: CONSTITUTIONAL: Denies fever, chills, sweats. EYES: Denies visual changes, redness, discharge. ENT: Denies rhinorrhea, congestion, sore throat, otalgia. Severe migraine headache the [place] CARDIOVASCULAR: Denies chest pain, palpitations, edema. RESPIRATORY: Denies dyspnea, wheezing, cough GASTROINTESTINAL: Denies abdominal pain, nausea, vomiting, diarrhea. GENITOURINARY: Denies dysuria, hematuria, abnormal discharge SKIN: Denies rash or itching. NEUROLOGIC: Denies numbness, or focal weakness. PSYCHIATRIC: Denies anxiety or depression. [facility] Past Medical History Medical History Abnormal uterine bleeding Anxiety Back pain Depression Diabetes Fractures Hypothyroidism Kidney stone Morbid obesity PID (acute pelvic inflammatory disease) Smoker Urinary tract infection Surgical History Surgical History H/O dilation and curettage H/O: Hx of cholecystectomy Family History Family History Other Diabetes mellitus Social History Social History Smoking status: Current every day smoker Alcohol intake: current Substance use: never Gender identity (if verbalized by the patient): Female Comments At time of signature, I agree with nursing past medical, surgical, social and family history. There is no relevant family history pertinent to the presenting complaint. Exam Narrative: Exam Narrative: GENERAL: This is a well-nourished, well-developed patient, in moderate distress. HEAD: normocephalic, atraumatic. EYES: PERRL. Sclera clear/white. Vision is grossly intact. Photophobia EARS: External ears normal, auditory canals clear and without drainage, TMs normal without perforation. Hearing grossly intact. NOSE: External nose normal without nasal discharge, nares without redness, no rhinorrhea. THROAT: Mucous membranes moist, NECK: Neck supple, non-tender CARDIOVASCULAR: Regular rate and rhythm without murmurs, gallops, or rubs. RESPIRATORY: Clear to auscultation. Breath sounds equal bilaterally. No wheezes, rales, or rhonchi. GASTROINTESTINAL: Abdomen soft, SKIN: warm, intact with no suspicious lesions or rash, good texture and turgor. NEURO: awake, alert, and oriented to person, place and time. There were no obvious focal neurologic abnormalities. Steady gait, she has good finger opposition and grossly normal cranial nerves EXTREMITIES: Normal range of motion. BACK: Nontender without deformity Course Course Emergency Course: Patient with a history of migraine headache Given Toradol and Zofran Vital Signs Vital signs: Vital Signs Temperature 98.4 F 08/24/20 16:28 Pulse Rate 93 08/24/20 16:28 Respiratory Rate 16 08/24/20 16:28 Blood Pressure 146/87 H 08/24/20 16:28 Pulse Oximetry 98 08/24/20 16:28 Temper
[2020-08-24] MEDS: ONDANSETRON HCL ODT 4 MG TABLET SUBLINGUAL (17:15)
[2020-08-24] MEDS: KETOROLAC (*BKC) 60 MG/2 ML VIAL IM (17:16)
== END 2020-08-24 17:50 | disposition home or self-care (01) ==
PROVIDERS: Emergency Provider Nurse Practitioner
DX: G43.909 Migraine, unspecified, not intractable, without status migrainosus (principal); F17.200 Nicotine dependence, unspecified, uncomplicated; E11.9 Type 2 diabetes mellitus without complications; E03.9 Hypothyroidism, unspecified; E66.01 Morbid (severe) obesity due to excess calories; Z68.43 Body mass index [BMI] 50.0-59.9, adult
CPT/HCPCS: 96372; 99213; A9270; G0463; J1885

== ENCOUNTER 2021-09-17 08:34 | Emergency (ER) | payer OTHER, SELFPAY ==
[2021-09-17 08:41] VITALS: BP 184/104; PULSE 90; RESP 20; TEMP 37.5; O2SAT 97
[2021-09-17 08:50] VITALS: BP 184/104; PULSE 90; RESP 20; TEMP 37.5; O2SAT 97
--- NOTE | 2021-09-17 09:00 | ED.GENADULT ---
HPI - General Adult General Chief complaint: Ear Stated complaint: Swollen left ear Source: patient Mode of arrival: ambulatory Limitations: no limitations History of Present Illness HPI narrative: Patient presents for evaluation of left-sided ear pain. Symptom onset 3 days ago. She had been at a [facility] the same day. She went to the ER at [facility] the following day and was told she had swimmer's ear. She was given a script for cipro ear gtts. She has attempted to place the gtts in her ear twice daily however she is unsure whether the drops are actually going into her ear due to the degree of swelling. She rates current pain as 10/10. She has experienced fever and chills. No nausea or vomiting. She is diabetic. Her home blood sugars have been in 210's. She reports left sided facial swelling, pain and redness. She smokes 1/2 ppd. No additional complaints or concerns. Related Data Home Medications Medication Instructions Recorded Confirmed ciprofloxacin HCl 0.3 % eye drops See Rx Instructions .Route .COMPLEX 09/17/21 09/17/21 ergocalciferol (vitamin D2) 1,250 1 mcg PO WEEKLY 09/17/21 09/17/21 mcg (50,000 unit) capsule famotidine 40 mg tablet 40 mg PO BID 09/17/21 09/17/21 hydrocodone 5 mg-acetaminophen 325 See Rx Instructions .Route 09/17/21 09/17/21 mg tablet .COMPLEX PRN Pain levothyroxine 200 mcg tablet 200 mcg PO DAILY 09/17/21 09/17/21 metformin 500 mg tablet 500 mg PO BID 09/17/21 09/17/21 potassium chloride 10 mEq 10 meq PO DAILY 09/17/21 09/17/21 tablet,extended release sitagliptin 50 mg tablet (Januvia) 50 mg PO DAILY 09/17/21 09/17/21 Allergies Allergy/AdvReac Type Severity Reaction Status Date / Time No Known Allergies Allergy Unknown Verified 09/17/21 08:40 Review of Systems Review of Systems: CONSTITUTIONAL:Reports fever and chills. EYES: Denies visual changes, redness, or discharge. ENT: Reports left sided facial pain, swelling and redness. Reports swelling and pain to the left ear. CARDIOVASCULAR: Denies chest pain, palpitations, or edema. RESPIRATORY: Denies cough or dyspnea. GASTROINTESTINAL: Denies abdominal pain, nausea, vomiting, or diarrhea. GENITOURINARY: Denies dysuria or hematuria. SKIN: Denies rash or itching. MUSCULOSKELETAL: Denies back pain, joint pain, or myalgia. NEUROLOGIC: Denies headache, numbness, dizziness, or weakness. PSYCHIATRIC: Denies anxiety or depression. [facility] Past Medical History Medical History Abnormal uterine bleeding Anxiety Back pain Depression Diabetes Fractures Hypothyroidism Kidney stone Morbid obesity PID (acute pelvic inflammatory disease) Smoker Urinary tract infection Surgical History Surgical History H/O dilation and curettage H/O: Hx of cholecystectomy Family History Family History Other Diabetes mellitus Social History Social History (Updated 09/17/21 @ 09:24 by GAB Mandujano, ) Smoking packs per day: 0.5 Smoking cigarettes per day: 10.0 Smoking status: Current every day smoker Alcohol intake: current Substance use: never Additional living arrangements comments: Lives with boyfriend Gender identity (if verbalized by the patient): Female Sexual Orientation (if Verbalized by the Patient): Straight or Heterosexual Spiritual care concerns: No Exam Narrative: GENERAL: Well-appearing, well-nourished, and in no acute distress. HEAD: Atraumatic. EYES: PERRLA and EOMI. ENT: There is swelling to left external ear. Left ear canal is edematous with associated warmth and redness. I am unable to evaluate with otoscope due to degree of swelling to left ear canal. Nares clear, no rhinorrhea or epistaxis. Mucous membranes moist. Oropharynx without tonsillar hypertrophy exudate or other lesions. NECK: Supple. No adenopathy
== END 2021-09-17 09:00 | disposition short-term general hospital (02) ==
PROVIDERS: Emergency Provider Nurse Practitioner
DX: L03.211 Cellulitis of face (principal); F17.210 Nicotine dependence, cigarettes, uncomplicated; E11.9 Type 2 diabetes mellitus without complications; E03.9 Hypothyroidism, unspecified; E66.01 Morbid (severe) obesity due to excess calories; Z68.44 Body mass index [BMI] 60.0-69.9, adult; Z79.84 Long term (current) use of oral hypoglycemic drugs
CPT/HCPCS: 99212; G0463

== ENCOUNTER 2022-03-14 09:32 | Emergency (ER) | payer OTHER, SELFPAY ==
[2022-03-14 09:38] VITALS: BP 159/85; PULSE 103; RESP 18; TEMP 36.6; O2SAT 97
--- NOTE | 2022-03-14 09:47 | ED.HA ---
HPI - Headache General Chief Complaint: Headache Stated Complaint: headache x 2 days Time Seen by Provider: 03/14/22 09:48 Source: patient, RN notes reviewed and old records reviewed Mode of arrival: ambulatory Limitations: no limitations History of Present Illness HPI Narrative: 36-year-old female presents to the [facility] a with complaints of a headache for 2 days. Has taken Excedrin. states she gets headaches frequently, sometimes has to go to the emergency room for IV medications. States that last time she was here for headache which she states is very similar she received Toradol and that worked very well. Denies any blurry vision or change in vision. Not photo or phonosensitivity. denies the worst headache of her life. Walks with a normal gait Onset (ago): day(s) (2) Treatments prior to arrival: other ( Excedrin) Related Data Home Medications Medication Instructions Recorded Confirmed famotidine 40 mg tablet 40 mg PO BID 09/17/21 03/14/22 levothyroxine 200 mcg tablet 200 mcg PO DAILY 09/17/21 03/14/22 potassium chloride 10 mEq 10 meq PO DAILY 09/17/21 03/14/22 tablet,extended release sitagliptin phosphate 50 mg tablet 50 mg PO DAILY 09/17/21 03/14/22 (Januvia) Allergies Allergy/AdvReac Type Severity Reaction Status Date / Time No Known Allergies Allergy Unknown Verified 09/17/21 08:40 Review of Systems Review of Systems: All systems reviewed & are unremarkable except as noted in HPI and below Constitutional: Constitutional: Reports as per HPI and Reports headache(s) Eyes: Eyes: Reports no additional eye complaints ENT: Reports system reviewed and no additional complaints, except as documented Cardiovascular: Cardiovascular: Reports no additional cardiovascular complaints, Denies chest pain and Denies dyspnea Respiratory: Respiratory: Reports no additional respiratory complaints, Denies chest congestion, Denies cough and Denies dyspnea Gastrointestinal: Gastrointestinal: Reports no additional gastrointestinal complaints, Denies abdominal pain, Denies nausea and Denies vomiting Musculoskeletal: Musculoskeletal: Reports no additional musculoskeletal complaints Integumentary/Breasts: Skin/Breast: Reports system reviewed and no additional complaints, except as docu Neurologic: Reports system reviewed and no additional complaints, except as documented Psychiatric: Psychiatric: Reports no additional psychiatric complaints Allergic/Immunologic: Allergic/Immunologic: Reports no additional allergic/immunologic complaints PMFSH Past Medical History Medical History Abnormal uterine bleeding Anxiety Back pain Depression Diabetes Fractures Hypothyroidism Kidney stone Morbid obesity PID (acute pelvic inflammatory disease) Smoker Urinary tract infection Surgical History Surgical History H/O dilation and curettage H/O: Hx of cholecystectomy Family History Family History Other Diabetes mellitus Social History Social History Smoking packs per day: 0.5 Smoking cigarettes per day: 10.0 Smoking status: Current every day smoker Alcohol intake: current Substance use: never Additional living arrangements comments: Lives with boyfriend Gender identity (if verbalized by the patient): Female Sexual Orientation (if Verbalized by the Patient): Straight or Heterosexual Spiritual care concerns: No Comments At the time of my signature, I reviewed and agree with the nursing past medical, surgical, social, and family history. There is no relevant family history pertinent to the patient complaint. Exam Const: General: cooperative, healthy appearing, comfortable, no acute distress, well developed, alert and well nourished Nutritional Appearance: wel
[2022-03-14] MEDS: KETOROLAC (*BKC) 60 MG/2 ML VIAL IM (10:15)
== END 2022-03-14 10:37 | disposition home or self-care (01) ==
PROVIDERS: Emergency Provider Nurse Practitioner; PCP Emergency Medicine
DX: R51.9 Headache, unspecified (principal); F17.210 Nicotine dependence, cigarettes, uncomplicated; E11.9 Type 2 diabetes mellitus without complications; E03.9 Hypothyroidism, unspecified; E66.01 Morbid (severe) obesity due to excess calories; Z68.44 Body mass index [BMI] 60.0-69.9, adult
CPT/HCPCS: 96372; 99213; G0463; J1885

== ENCOUNTER 2022-04-07 09:21 | Emergency (ER) | payer OTHER, SELFPAY ==
[2022-04-07 09:24] VITALS: BP 139/83; PULSE 129; RESP 20; TEMP 36.6; O2SAT 98
--- NOTE | 2022-04-07 09:31 | ED.SKABFB ---
HPI - Skin/Abscess/Foreign Bdy General Chief complaint: Skin/Abscess/Foreign Body Stated complaint: face rash/burn w/itch Time Seen by Provider: 04/07/22 09:31 Source: patient and RN notes reviewed History of Present Illness HPI narrative: patient is a 37-year-old female who presents to urgent care with complaints of a burning facial rash. Patient states that she used a new acne cream called clear proof from Paula Galvez. Active ingredient is salicylic acid and benzyl peroxide. Patient states that she had the immediate reaction. States that she has stopped the medication and tried baking soda on her face which only made matters worse. No other acute complaints. No acute acute distress noted. Patient aware of the plan of care. Some parts of this dictation were generated by voice recognition software and may contain typographical and/or grammatical inaccuracies. Related Data Home Medications Medication Instructions Recorded Confirmed famotidine 40 mg tablet 40 mg PO BID 09/17/21 04/07/22 sitagliptin phosphate 50 mg tablet 50 mg PO DAILY 09/17/21 04/07/22 (Januvia) levothyroxine 175 mcg tablet 175 mcg PO DAILY 04/07/22 04/07/22 lisinopril 20 tablet 04/07/22 mg-hydrochlorothiazide 25 mg tablet Allergies Allergy/AdvReac Type Severity Reaction Status Date / Time No Known Allergies Allergy Unknown Verified 04/07/22 09:36 Review of Systems Review of Systems: CONSTITUTIONAL: Denies fever, chills, or sweats. EYES: Denies visual changes, redness, or discharge. ENT: Denies rhinorrhea, congestion, sore throat, or otalgia. CARDIOVASCULAR: Denies chest pain, palpitations, or edema. RESPIRATORY: Denies cough or dyspnea. GASTROINTESTINAL: Denies abdominal pain, nausea, vomiting, or diarrhea. GENITOURINARY: Denies dysuria or hematuria. SKIN: Reports of a burning facial rash MUSCULOSKELETAL: Denies back pain, joint pain, or myalgia. NEUROLOGIC: Denies headache, numbness, or weakness. All other systems reviewed are negative, except as documented in HPI. [facility] Past Medical History Medical History Abnormal uterine bleeding Anxiety Back pain Depression Diabetes Fractures Hypothyroidism Kidney stone Morbid obesity PID (acute pelvic inflammatory disease) Smoker Urinary tract infection Surgical History Surgical History H/O dilation and curettage H/O: Hx of cholecystectomy Family History Family History Other Diabetes mellitus Social History Social History Smoking packs per day: 0.5 Smoking cigarettes per day: 10.0 Smoking status: Current every day smoker Alcohol intake: current Substance use: never Additional living arrangements comments: Lives with boyfriend Gender identity (if verbalized by the patient): Female Sexual Orientation (if Verbalized by the Patient): Straight or Heterosexual Spiritual care concerns: No Comments At the time of my signature, I reviewed and agree with the nursing past medical, surgical, social, and family history. There is no relevant family history pertinent to the patient complaint. Exam Narrative: GENERAL: This is a well-nourished, well-developed patient, in no apparent distress. HEAD: normocephalic, atraumatic. EYES: PERRL. Sclera clear/white. Vision is grossly intact. EARS: External ears normal, auditory canals clear and without drainage, TMs normal without perforation. Hearing grossly intact. NOSE: External nose normal with no obvious nasal discharge, nares without redness, no rhinorrhea. THROAT: Mucous membranes moist, posterior pharynx clear. NECK: Neck supple SKIN: erythemic fine papular dermatitis diffuse to the face with mild edema NEURO: awake, alert, and oriented to person, place and time. There were no obvious fo
== END 2022-04-07 09:49 | disposition home or self-care (01) ==
PROVIDERS: Emergency Provider Nurse Practitioner Family
DX: L30.9 Dermatitis, unspecified (principal); T49.4X5A Adverse effect of keratolytics, keratoplastics, and other hair treatment drugs and preparations, initial encounter; F17.210 Nicotine dependence, cigarettes, uncomplicated; E11.9 Type 2 diabetes mellitus without complications; E03.9 Hypothyroidism, unspecified; E66.01 Morbid (severe) obesity due to excess calories; Z68.44 Body mass index [BMI] 60.0-69.9, adult
CPT/HCPCS: 99213; G0463

== ENCOUNTER 2022-04-29 14:52 | Emergency (ER) | payer OTHER, SELFPAY ==
--- NOTE | 2022-04-29 14:57 | ED.DENTAL ---
HPI - Dental/Oral General Chief complaint: Dental/Oral Stated complaint: Toothache Source: patient and RN notes reviewed History of Present Illness HPI Narrative: 37-year-old female presents urgent care with complaints of left upper dental pain. Patient states she has been having this pain for last days. Patient reports having a dentist appointment on 05/21/2022. Denies any fevers, chills or vomiting. Some parts of this dictation were generated by voice recognition software and may contain typographical and/or grammatical inaccuracies. Related Data Home Medications Medication Instructions Recorded Confirmed famotidine 40 mg tablet 40 mg PO BID 09/17/21 04/07/22 sitagliptin phosphate 50 mg tablet 50 mg PO DAILY 09/17/21 04/07/22 (Januvia) levothyroxine 175 mcg tablet 175 mcg PO DAILY 04/07/22 04/07/22 lisinopril 20 tablet 04/07/22 mg-hydrochlorothiazide 25 mg tablet Allergies Allergy/AdvReac Type Severity Reaction Status Date / Time No Known Allergies Allergy Unknown Verified 04/07/22 09:36 Review of Systems Review of Systems: CONSTITUTIONAL: Denies fever, chills, or sweats. EYES: Denies visual changes, redness, or discharge. ENT: Denies otalgia and sore throat. Left upper dental pain CARDIOVASCULAR: Denies chest pain, palpitations, or edema. RESPIRATORY: Denies cough or dyspnea. GASTROINTESTINAL: Denies abdominal pain, nausea, vomiting, or diarrhea. GENITOURINARY: Denies dysuria or hematuria. SKIN: Denies rash or itching. MUSCULOSKELETAL: Denies back pain, joint pain, or myalgia. NEUROLOGIC: Denies headache, numbness, or weakness. [facility] Past Medical History Medical History Abnormal uterine bleeding Anxiety Back pain Depression Diabetes Fractures Hypothyroidism Kidney stone Morbid obesity PID (acute pelvic inflammatory disease) Smoker Urinary tract infection Surgical History Surgical History H/O dilation and curettage H/O: Hx of cholecystectomy Family History Family History Other Diabetes mellitus Social History Social History Smoking packs per day: 0.5 Smoking cigarettes per day: 10.0 Smoking status: Current every day smoker Alcohol intake: current Substance use: never Additional living arrangements comments: Lives with boyfriend Gender identity (if verbalized by the patient): Female Sexual Orientation (if Verbalized by the Patient): Straight or Heterosexual Spiritual care concerns: No Comments At the time of my signature, I reviewed and agree with the nursing past medical, surgical, social, and family history. There is no relevant family history pertinent to the patient complaint. Exam Narrative: GENERAL: This is a well-nourished, well-developed patient, in no apparent distress. HEAD: normocephalic, atraumatic. EYES: Sclera clear/white. Vision is grossly intact. MOUTH: Approximately 1 cm abscess noted adjacent to tooth number 14. Tooth #14 noted be broken. NOSE: External nose normal with no obvious nasal discharge, nares without redness, no rhinorrhea. THROAT: Mucous membranes moist, posterior pharynx clear. NECK: Neck supple, non-tender without lymphadenopathy, masses or thyromegaly. CARDIOVASCULAR: Regular rate and rhythm without murmurs, gallops, or rubs. RESPIRATORY: Clear to auscultation. Breath sounds equal bilaterally. No wheezes, rales, or rhonchi. SKIN: warm, intact with no suspicious lesions or rash, good texture and turgor. NEURO: awake, alert, and oriented to person, place and time. There were no obvious focal neurologic abnormalities. Course Course Level of Care: Express Care Visit Vital Signs Vital signs: Vital Signs Temperature 97.0 F L 04/29/22 14:59 Pulse Rate 104 H 04/29/22 14:59 Respiratory Rate 2
[2022-04-29 14:59] VITALS: BP 118/63; PULSE 104; RESP 20; TEMP 36.1; O2SAT 97
== END 2022-04-29 15:27 | disposition home or self-care (01) ==
PROVIDERS: Emergency Provider Nurse Practitioner Family
DX: Z68.44 Body mass index [BMI] 60.0-69.9, adult (principal); E03.9 Hypothyroidism, unspecified; E11.9 Type 2 diabetes mellitus without complications; F41.9 Anxiety disorder, unspecified; F32.A Depression, unspecified; E66.01 Morbid (severe) obesity due to excess calories; F17.210 Nicotine dependence, cigarettes, uncomplicated; K04.7 Periapical abscess without sinus
CPT/HCPCS: 99213; G0463

== ENCOUNTER 2023-11-21 09:00 | Emergency (ER) | payer OTHER, SELFPAY ==
[2023-11-21 09:09] VITALS: BP 162/89; PULSE 86; RESP 18; TEMP 36.4; O2SAT 98
[2023-11-21 09:10] VITALS: BP 162/89; PULSE 86; RESP 18; TEMP 36.4; O2SAT 98
--- NOTE | 2023-11-21 09:45 | ED.GENADULT ---
HPI - General Adult General Chief complaint: Dental/Oral Stated complaint: Toothache Source: patient Mode of arrival: ambulatory Limitations: no limitations History of Present Illness HPI narrative: Patient presents for evaluation of left upper dental pain for last 2 days. She indicates she feels a ?lump? in the affected. Pain is mild, without descriptive quality are numerical rating. She has been taking ibuprofen for symptoms. She smokes 3/4 ppd. She thinks her symptoms are related to an infection. No fever, chills, nausea, vomiting. She is diabetic. Home BS 100-120. Related Data Home Medications Medication Instructions Recorded Confirmed sitagliptin phosphate 50 mg tablet 50 mg PO DAILY 09/17/21 04/07/22 (Januvia) levothyroxine 175 mcg tablet 175 mcg PO DAILY 04/07/22 04/07/22 lisinopril 20 tablet 04/07/22 mg-hydrochlorothiazide 25 mg tablet Allergies Allergy/AdvReac Type Severity Reaction Status Date / Time No Known Allergies Allergy Unknown Verified 04/07/22 09:36 Review of Systems Review of Systems: CONSTITUTIONAL: Denies fever, chills, or sweats. EYES: Denies visual changes, redness, or discharge. ENT: Reports left upper dental pain and swelling. Denies rhinorrhea, congestion, sore throat, or otalgia. CARDIOVASCULAR: Denies chest pain, palpitations, or edema. RESPIRATORY: Denies cough or dyspnea. GASTROINTESTINAL: Denies abdominal pain, nausea, vomiting, or diarrhea. GENITOURINARY: Denies dysuria or hematuria. SKIN: Denies rash or itching. MUSCULOSKELETAL: Denies back pain, joint pain, or myalgia. NEUROLOGIC: Denies headache, numbness, dizziness, or weakness. PSYCHIATRIC: Denies anxiety or depression. [facility] Past Medical History Medical History Abnormal uterine bleeding Anxiety Back pain Depression Diabetes Fractures Hypothyroidism Kidney stone Morbid obesity PID (acute pelvic inflammatory disease) Smoker Urinary tract infection Surgical History Surgical History H/O dilation and curettage H/O: Hx of cholecystectomy Family History Family History Other Diabetes mellitus Social History Social History Smoking packs per day: 0.75 Smoking cigarettes per day: 15.0 Smoking status: Current every day smoker Alcohol intake: current Substance use: never Additional living arrangements comments: Lives with boyfriend Gender identity (if verbalized by the patient): Female Sexual Orientation (if Verbalized by the Patient): Straight or Heterosexual Spiritual care concerns: No Exam Narrative: GENERAL: Well-appearing, well-nourished, and in no acute distress. HEAD: Normocephalic, atraumatic. EYES: PERRLA and EOMI. ENT: Nares clear, no rhinorrhea or epistaxis. Mucous membranes moist. Oropharynx without tonsillar hypertrophy exudate. Tooth #12 is fractured. There is an area of swelling to the hard palate adjacent to tooth #12 with underlying fluctuance. Bilateral TMs pearly stacy nonbulging NECK: Supple. No adenopathy or masses. No carotid bruits or JVD CHEST: Clear to auscultation. No respiratory distress. No wheezes rales or rhonchi HEART: Regular rate and rhythm. No murmur heard. Normal peripheral pulses. ABDOMEN: Soft, nontender, nondistended, normal active bowel sounds. EXTREMITIES: Normal range of motion. No edema. SKIN: Warm, dry, no rash. NEURO: No focal deficits. Alert and oriented x3. PSYCH: Normal mood and affect. Course Course Emergency Course: This is a 38-year-old female who presented for evaluation of left upper dental pain and swelling. She has evidence of an abscess that I recommend draining. She declined. I provided her with education on need for drainage. She would only like to procee
== END 2023-11-21 09:57 | disposition home or self-care (01) ==
PROVIDERS: Emergency Provider Nurse Practitioner; PCP Physician Assistant
DX: K04.7 Periapical abscess without sinus (principal); F17.210 Nicotine dependence, cigarettes, uncomplicated; E11.9 Type 2 diabetes mellitus without complications; E03.9 Hypothyroidism, unspecified; E66.01 Morbid (severe) obesity due to excess calories; Z68.43 Body mass index [BMI] 50.0-59.9, adult
CPT/HCPCS: 99213; G0463

== ENCOUNTER 2025-01-29 15:11 | Emergency (ER) | payer OTHER, SELFPAY ==
--- OUTSIDE RECORDS SUMMARY | 2025-01-29 15:13 | XMS_ITS | Encounter Summary ---
Author Organization [facility] Address [address] [place] [address] Phone Care Team Providers Care Telephonic Case Manager Name Role Phone Marium Dawson APRN, EDISON Unavailable [phone] Wesley Baumann MD Unavailable Salvatore Wilkins PAC Primary Care Provider [phone] Catarino Stevens MD Unavailable Reason for Visit * Reason Comments Medication Refill Encounter Details Date Type Department Care Team (Late st Contact Info) Description 05/15/2023 Refill [facility] - Primary Care - [place] [address] [place] [address] Marium Dawson APRN, PUBLIC EVENTS FACILITIES RENTAL MANAGER [address] [place] [address] Medication Refill Social History Tobacco Use Types Packs/Day Years Used Date Smoking Tobacco: Every Day Cigarettes 0.5 19.9 Started: 2005 Smokeless Tobacco: Never Alcohol Use Standard Drinks/Week Comments Not Currently 0 (1 standard drink = 0.6 oz pur e alcohol) [facility] Utilities Answer Date Recorded In the past 12 months has e [employer], gas, oil, or water company threatened to shut off services in your home? Patient declined 05/12/2023 Social Connection and Isolation Panel Answer Date Recorded In a typical week, how many times do you talk on the phone with family, friends, or neighbors? Once a week 05/12/2023 How often do you get together with friends or re latives? Never 05/12/2023 How often do you attend confucianist or mormon serv ices? Never 05/12/2023 Do you belong to any clubs o r organizations such as confucianist groups, unions, fraternal or athletic groups, or school groups? No 05/12/2023 How often do you attend meet ings of the clubs or organizations you belong to? Never 05/12/2023 Are you , , di vorced, , never , or living with a partner? Never 05/12/2023 AUDIT-C Answer Date Recorded Q1: How often do you have a drink containing alcohol? Never 05/12/2023 Q2: How many drinks containi ng alcohol do you have on a typical day when you are drinking? Patient does not drink Q3: How often do you have si x or more drinks on one occasion? Never 05/12/2023 Overall Financial Resource Strain (CARDIA) Answe r Date Recorded How hard is it for you to pa y for the very basics like food, housing, medical care, and heating? Patient declined 05/12/2023 PHQ-2 Answer Date Recorded Total Score - Questions 1-9 0 08/01 [facility] - Occupational Stress Questionnaire Answer Date Recorded Do you feel stress - tense, restless, nervous, or anxious, or unable to sleep at night because your mind is troubled all the time - these days? Very much 05/12/2023 Exercise Vital Sign Answer Date Recorde d On average, how many days pe r week do you engage in moderate to strenuous exercise (like a brisk walk)? 0 days 05/12/2023 On average, how many minutes do you engage in exercise at this level? 0 min 05/12/2023 Hunger Vital Sign Answer Date Recorded Within the past 12 months, y ou worried that your food would run out before you got the money to buy more. Patient declined Within the past 12 months, t he food you bought just didn't last and you didn't have money to get more. Patient declined 01/2024 PRAPARE - Transportation Answer Date Re corded In the past 12 months, has l ack of transportation kept you from medical appointments or from getting medications? Patient declined 05/12/2023 In the past 12 months, has l ack of transportation kept you from meetings, work, or from getting things needed for daily living? Patient declined 05/12/2023 Housing Stability Vital Sign Answer Carlos e Recorded In the last 12 months, was t here a time when you were not able to pay the mortgage or rent on time? Patient declined 05/12/19 24 Number of Places Lived in the Last Year Not on f ile 05/12/2023 In the last 12 months, was t here a time when you did not have a steady place to sleep or slept in a mcc (including now)? Patient declined 05/12/2023 Education Answer Date Recorded What is the highest level of school you have completed or the highest degree you have received? 9th grade 01/30/2021 Sexually Active Control Partners Comments Yes Male Comments No Sex and Gender Information Value Date Recorded Sex Assigned at Not on file Legal Sex Female 8:49 PM CDT Gender Identity Not on file Sexual Orientation Not on file documented as of this encounter Miscellaneous Notes * Telephone Encounter - Salvatore Marx PAC - 05/15/2023 2:36 PM CDT Refill approved. * Telephone Encounter - Pasquale Coombs RN - 05/15/2023 2:25 PM CDT Per nursing clinical judgement, provider to review and approve the medication(s) order(s) if appropriate. Requested Prescriptions Pending Prescriptions Disp Refills Januvia 100 MG Tablet [Pharmacy Med Name: JANUVIA 100MG TABLETS] 90 Tablet 3 Sig: TAKE 1 TABLET BY MOUTH DAILY DPP-4 Inhibitors Protocol Passed - 05/15/2023 2:18 PM Passed - Visit with relevant provider in past 6 months or upcoming 90 days Recent Visits Date Type Provider Dept 05/13/23 Office Visit Salvatore Marx PAC [facility] 02/09/23 Office Visit Sasha Quintero MD [facility] 02/05/23 Office Visit Salvatore Marx PAC [facility] Showing recent visits within past 182 days and meeting all other requirements Future Appointments Date Type Provider Dept 08/06/23 Appointment [facility] 08/13/23 Appointment Salvatore Marx, PAC [facility] Showing future appointments within next 90 days and meeting all other requirements Passed - HgA1C on record in the past 6 months HGB-A1C Date Value Ref Range Status 02/05/2023 5.4 4.0 - 6.0 % Final Passed - GFR on record in past 6 months GFR, EST. NONAFRICAN Date Value Ref Range Status 02/05/2023 >60 >=60 Final lisinopril-hydroCHLOROthiazide (PRINZIDE, ZESTORETIC) 20-25 MG Tablet [Pharmacy Med Name: LISINOPRIL-HCTZ 20/25MG TABLETS] 90 Tablet 3 Sig: Take 1 Tablet by mouth daily. Laurent Inhibitors and Diuretics Combo Protocol Passed - 05/15/2023 2:18 PM Passed - Serum potassium on record in past 12 months POTASSIUM Date Value Ref Range Status 02/05/2023 4.1 3.5 - 5.1 mmol/L Final Passed - Serum sodium on record in past 12 months SODIUM Date Value Ref Range Status 02/05/2023 140 136 - 145 mmol/L Final Passed - Blood pressure on record in past 12 months Clinician-entered: BP Readings from Last 3 Encounters: 05/13/23 144/70 02/09/23 130/88 02/05/23 140/88 Patient-entered: No data recorded Passed - Visit with relevant provider in past 12 months or upcoming 90 days Recent Visits Date Type Provider Dept 05/13/23 Office Visit Salvatore Marx, PAC [facility] 02/09/23 Office Visit Sasha Quintero MD [facility] 02/05/23 Office Visit Salvatore Marx, JUAN JOSE [facility] 10/22/22 Office Visit Salvatore Marx, PAC [facility] 09/11/22 Office Visit Salvatore Marx, PAC [facility] 08/21/22 [facility] 06/25/22 Office Visit Francisco J Salvatore [place], PAC [facility] [address] [facility] 05/28/22 Office Visit Marx Salvatore B, [facility] Showing recent visits within past 365 days and meeting all other requirements Future Appointments Date Type Provider Dept 08/06/23 Appointment Jeri Rivas [facility] [address] [facility] 08/13/23 [facility] Show[facility] future appointments within next 90 days and meeting all other requirements Passed - GFR on record in past 12 months GFR, EST. NONAFRICAN Date Value Ref Range Status 02/05/2023 >60 >=60 Final documented in this encounter Plan of Treatment Upcoming Encounters Date Type Department Care Team (Late st Contact Info) Description 02/02/2025 10:00 AM CLINICAL SUPPORT NURSE [facility] [place] [address] [place] [address] Salvatore Marx PAC [address] [place] [address] documented as of this encounter Visit Diagnoses Not on filedocumented in this encounter Additional Health Concerns Assessment Noted Time PHQ-9 Depression Total Score: 0 08/24/19 21 8:15 AM CDT documented as of this encounter Care Teams Telephonic Case Manager Relationship Specialty Start Date End Date Salvatore Marx PAC [address] [place] [address] PCP - General Physician Mental Health Aide 06/25/22 Marium Dawson APRN, PUBLIC EVENTS FACILITIES RENTAL MANAGER [address] [place], [place] [id number] Nurse Practitioner Advanced Practice Nurse 08/16/2001/24 Wesley Baumann MD [address] [place] [address] Military Technology Specialist Cardiovascular Disease - Cardiology 07/30/21 04/20/24 Catarino Stevens MD [address] [address] Consulting Physician Endocrinology 08/15/22 01/18/24 documented as of this encounter
--- OUTSIDE RECORDS SUMMARY | 2025-01-29 15:13 | XMS_ITS | Clinical Summary ---
Author Organization [facility] Address [address] [place] [address] Care Team Providers Care Knitting Demonstrator Name Role Phone Marium Dawson CLINICAL INFORMATICS SPEC Primary Care Provider [phone] Allergies No known active allergies Medications levothyroxine sodium (TIROSINT) 75 mcg capsule Take 175 mcg by mouth daily Active buPROPion XL (WELLBUTRIN XL) 150 mg 24 hr tablet Take 150 mg by mouth satellite tv technician before breakfast 2 Active busPIRone (BUSPAR) 5 mg tablet Take 5 mg by mouth 3 (three) times a day 2 Active cholecalcifero l (VITAMIN D-3) 2000 unit tablet Take 1 tablet by mouth daily 1 Active lisinopril-hyd roCHLOROthiazi de (ZESTORETIC) 20-25 mg per tablet Take 1 tablet by mouth daily 2 Active potassium chloride ER 10 mEq CR tablet Take 10 mEq by mouth daily 2 Active sertraline (ZOLOFT) 100 mg tablet Take 100 mg by mouth daily 2 Active famotidine (PEPCID) 40 mg tabletIndicati ons:Laryngeal spasm TAKE 1 TABLET(40 MG) BY MOUTH TWICE DAILY 60 tablet 2 Active Januvia 50 mg tablet Take 50 mg by mouth daily 2 Active cyclobenzaprin e (FLEXERIL) 10 mg tablet TAKE 1 TABLET BY MOUTH THREE TIMES DAILY FOR UP TO 14 DAYS NEEDED FOR MUSCLE SPASMS 2 Active HYDROcodone-ac etaminophen (NORCO) 5-325 mg per tabletIndicati ons:Pain Take 1 tablet by mouth every 6 (six) hours as needed for pain 10 tablet 3 Active ondansetron (ZOFRAN) 4 mg tablet Take 1 tablet (4 mg total) by mouth every 6 (six) hours 12 tablet 3 Active chlorhexidine (PERIDEX) 0.12 % oral rinseIndicatio ns:Dentalgia,D ental infection,[place] al caries Apply 10-15 mL to the mouth or throat 3 (three) times a day Swish around in mouth for 5 minutes then spit out. Collaborating physician Chivo Amaro MD 240 mL 4 Active naproxen (NAPROSYN) 500 mg tabletIndicati ons:Dentalgia, Dental infection Take 1 tablet (500 mg total) by mouth 2 (two) times a day with meals P.r.n. pain. Collaborating physician Chivo Amaro MD 20 tablet 4 Active Active Problems Problem Noted Date Diagnosed Date Dentalgia 02/20/2024 Dental caries 02/20/2024 Acute swimmer's ear of left side 09/17/2021 Assessment & Plan (09/23/2021 2:38 PM CDT): Finish Levaquin and Ciprodex drops Avoid ear cleaning techniques Avoid water to ears Follow up as needed Assessment & Plan (09/17/2021 4:41 PM CDT): Avoid ear cleaning techniques Avoid water to ears Follow up on Thursday Ciprodex drops to the Left ear twice daily 10 drops for 14 days Levaquin 750 mg daily with a meal How to Use Ear Drops discussed and Handout provided Morbid (severe) obesity due to excess calories 0 07/02/2021 Assessment & Plan (07/02/2021 4:12 PM CDT): Pepcid 40 mg twice daily Referral to Sleep Medicine Body mass index (BMI) 60.0-69.9, adult Assessment & Plan (07/02/2021 4:12 PM CDT): Pepcid 40 mg twice daily Referral to Sleep Medicine Laryngeal spasm 07/02/2021 Assessment & Plan (07/02/2021 4:12 PM CDT): Pepcid 40 mg twice daily Referral to Sleep Medicine LPR discussed and Handout provided ABDOUL (obstructive sleep apnea) 07/02/2021 Assessment & Plan (07/02/2021 4:12 PM CDT): Pepcid 40 mg twice daily Referral to Sleep Medicine Tension headache 11/19/2019 Nausea 11/19/2019 Superficial burn of little finger of left hand 1 Acquired hypothyroidism 10/27/2018 Class 3 severe obesity due t o excess calories with serious comorbidity and body mass index (BMI) of 50.0 to 59.9 in adult 10/27/2018 High blood pressure 10/27/2018 Tobacco abuse 10/27/2018 Surgical History Surgery Date Site/Laterality Comments SECTION DILATION AND CURETTAGE OF UTERUS CHOLECYSTECTOMY HYSTERECTOMY Medical History Medical History Date Comments Diabetes mellitus pt states not a diabetic Endometriosis Thyroid disease Anxiety Depression Mood swings Social History Tobacco Use Types Packs/Day Years Used Date Smoking Tobacco: Every Day Cigarettes Smokeless Tobacco: Never Tobacco Cessation:Ready to Q uit: Not Asked; Counseling Given: Not Answered Alcohol Use Standard Drinks/Week Comments Never 0 (1 standard drink = 0.6 oz pur e alcohol) AUDIT-C Answer Date Recorded Frequency of Alcohol Consumption Never 06/04/2018 Average Number of Drinks Not on file 019 Frequency of Binge Drinking Not on file 06/2018 Personal Safety Answer Date Recorded Have you ever been in or are you currently in a harmful physical or emotional relationship or is someone making you feel afraid or unsafe? Denies 02/20/2024 Comments No Sex and Gender Information Value Date Recorded Sex Assigned at Not on file Legal Sex Female 2:39 PM BANKING PIN ADJUSTER Gender Identity Not on file Sexual Orientation Not on file Last Filed Vital Signs Vital Sign Reading Time Taken Comments Blood Pressure 145/89 02/20/2024 9:20 PM BANKING PIN ADJUSTER Pulse 115 02/20/2024 9:20 PM BANKING PIN ADJUSTER Temperature 36.5 C (97.7 F) 02/20/2024 9:20 PM BANKING PIN ADJUSTER Respiratory Rate 18 02/20/2024 9:20 PM BANKING PIN ADJUSTER Oxygen Saturation 98% 02/20/2024 9:20 PM BANKING PIN ADJUSTER Inhaled Oxygen Concentration - - Weight 145.2 kg (320 lb) 02/20/2024 9:20 PM BANKING PIN ADJUSTER Height 160 cm (5' 3) 02/20/2024 9:20 PM BANKING PIN ADJUSTER Body Mass Index 56.69 02/20/2024 9:20 PM BANKING PIN ADJUSTER Plan of Treatment Health Maintenance Due Date Last Done Comments Depression Screening 1986 Hepatitis C Screening 1986 Varicella Vaccines (1 of 2 - 13+ 2-dose series) 1999 Hepatitis B Screening 2004 Regular Well Visit/Exam 18-64 2004 Pneumococcal vaccine <65 (1 of 2 - PCV) 2005 HPV Vaccines (1 - 3-dose SCDM series) 2013 Covid-19 Vaccine (2 - 2024- season) 2024 Influenza Vaccine (#1) 2024 12/12/2017 DTaP/Tdap/Td Vaccine (2 - Td or Tdap) 09/12/2026 [id number] [place] [address] [facility] Care Teams Knitting Demonstrator Relationship Specialty Start Date End Date Marium Dawson NP [address] [place] [address] PCP - General 11/02/20
--- OUTSIDE RECORDS SUMMARY | 2025-01-29 15:13 | XMS_ITS | Encounter Summary ---
Author Organization [facility] Address [address] [place] [address] Phone Care Team Providers Care House Registry Rn Name Role Phone Marium Dawson APRN, RECHECKER Unavailable [phone] Wesley Baumann MD Unavailable Salvatore Wilkins Primary Care Provider [phone] Catarino Stevens MD Unavailable Reason for Visit * Reason Onset Date Comments Generalized Weakness 09/09/2022 Encounter Details Date Type Department Care Team (Late st Contact Info) Description 09/09/2022 Nurse Triage [facility] - Primary Care - James [address] [place] [address] Salvatore Marx, PAC [address] [place] [address] Generalized Weakness Social History Tobacco Use Types Packs/Day Years Used Date Smoking Tobacco: Some Days Cigarettes 0.5 19.9 Started: 2005 Smokeless Tobacco: Never Alcohol Use Standard Drinks/Week Comments Not Currently 0 (1 standard drink = 0.6 oz pur e alcohol) PHQ-2 Answer Date Recorded Total Score - Questions 1-9 0 08/01 Education Answer Date Recorded What is the highest level of school you have completed or the highest degree you have received? 9th grade 01/30/2021 Sexually Active Control Partners Comments Yes Male Comments No Sex and Gender Information Value Date Recorded Sex Assigned at Not on file Legal Sex Female 8:49 PM CDT Gender Identity Not on file Sexual Orientation Not on file COVID-19 Exposure Response Date Recorded In the last 10 days, have yo u been in contact with someone who was confirmed or suspected to have Coronavirus/COVID-19? No / Unsure 09/11/2022 2:50 PM CDT documented as of this encounter Functional Status documented as of this encounter Mental Status * Question Answer Entry Date Author BP 130/78 09/11/2022 2:55 PM CDT Yudelka Scott, RMA Temp 98.4 09/11/2022 2:55 PM CDT Yudelka Scott, RMA Pulse 98 09/11/2022 2:55 PM CDT Yudelka Scott, RMA SpO2 95 09/11/2022 2:55 PM CDT Yudelka Scott, RMA documented in this encounter Miscellaneous Notes * Telephone Encounter - Nikki Lou, RN - 09/09/2022 1:24 PM CDT SITUATION: Weakness, tiredness, cold flushed feeling, sweating, shaky BACKGROUND: Weakness, tiredness, cold feeling, sweating, shaky onset today. Does not have glucometer to check glucose levels. Does not feel hungry but will eat and seems to help some. Recently started on Trulicity 3 mg weekly. Also takes lisinopril-HCTZ 20-25 mg daily. Is concerned about going to work this evening as she works by herself. HISTORY: T2DM, HTN, Hypothyroidism ASSESSMENT & RECOMMENDATION: First positive answer recorded, all responses to prior questions were negative. If symptoms increase, change or if new symptoms develop, call your HCP or call back. Recommendations were based on caller information and is not a diagnosis. Verified and reviewed all triage information with caller. Teach-back method utilized. Dispositioned Go to office now. No appointments available. Advised to proceed to prompt care in [place] for evaluation. Patient agreeable to plan. Reason for Disposition ??? MODERATE weakness (i.e., interferes with work, school, normal activities) and cause unknown (Exceptions: Weakness with acute minor illness, or weakness from poor fluid intake.) Answer Assessment - Initial Assessment Questions 1. DESCRIPTION: Describe how you are feeling. Exhausted, weak, shaky, feel cold all over, sweating 2. SEVERITY: How bad is it? Can you stand and walk? - MILD - Feels weak or tired, but does not interfere with work, school or normal activities - MODERATE - Able to stand and walk; weakness interferes with work, school, or normal activities - SEVERE - Unable to stand or walk Moderate 3. ONSET: When did the weakness begin? today 4. CAUSE: What do you think is causing the weakness? Possibly low blood sugar 5. MEDICINES: Have you recently started a new medicine or had a change in the amount of a medicine? yes 6. OTHER SYMPTOMS: Do you have any other symptoms? (e.g., chest pain, fever, cough, SOB, vomiting, diarrhea, bleeding, other areas of pain) No 7. : Is there any chance you are ? When was your last menstrual period? No, hysterectomy Protocols used: WEAKNESS (GENERALIZED) AND PITAXPS-E-SO documented in this encounter Plan of Treatment Upcoming Encounters Date Type Department Care Team (Late st Contact Info) Description 02/02/2025 10:00 AM PATIENT TRANSPORTATION DRIVER Office Visit [facility] - Primary Care - Jeri [address] [place] [phone] Salvatore Marx PAC [address] [place] [id number] documented as of this encounter Visit Diagnoses Not on filedocumented in this encounter Additional Health Concerns Assessment Noted Time PHQ-9 Depression Total Score: 0 08/24/19 21 8:15 AM CDT documented as of this encounter Care Teams House Registry Rn Relationship Specialty Start Date End Date Salvatore Marx PAC [address] [place] [phone] PCP - General Physician Personal Service Workers 06/25/22 Marium Dawson, DYNAMITER, RECHECKER [address], [place] [id number] Nurse Practitioner Advanced Practice Nurse 08/16/2001/24 Wesley Baumann MD [address] [place] [address] Senior Loan Officer Cardiovascular Disease - Cardiology 07/30/21 04/20/24 Catarino Stevens MD [address] [address] Consulting Physician Endocrinology 08/15/22 01/18/24 documented as of this encounter
--- OUTSIDE RECORDS SUMMARY | 2025-01-29 15:13 | XMS_ITS | Encounter Summary ---
Author Organization [facility] Address [address] [place] [address] Phone Care Team Providers Care Affirmative Action Officer Name Role Phone Marium Dawson APRN, EDISON Unavailable [phone] Wesley Baumann MD Unavailable Salvatore Wilkins Primary Care Provider [phone] Catarino Stevens MD Unavailable Reason for Visit * Reason Comments Medication Refill Encounter Details Date Type Department Care Team (Late st Contact Info) Description 12/22/2023 Refill [facility] - Primary Care - Jeri [address] [place] [address] Salvatore Marx, PAC [address] [place] [address] Medication Refill Social History Tobacco Use Types Packs/Day Years Used Date Smoking Tobacco: Every Day Cigarettes 0.5 19.9 Started: 2005 Smokeless Tobacco: Never Alcohol Use Standard Drinks/Week Comments Not Currently 0 (1 standard drink = 0.6 oz pur e alcohol) [facility] Utilities Answer Date Recorded In the past 12 months has e electric, gas, oil, or water company threatened to [...] Never 05/12/2023 How often do you attend hindu or shinto serv ices? Never 05/12/2023 Do you belong to any clubs o r organizations such as hindu groups, unions, fraternal or athletic groups, or [...] Recorded Total Score - Questions 1-9 0 07/31 [facility] of Occupat ional Health - Occupational Stress [...] place to sleep or slept in a assisted (including now)? Patient declined 05/12/2023 Education Answer [...] Telephone Encounter - Salvatore Marx PAC - 12/22/2023 12:51 PM CDT Filled the 3mg dose. * Telephone Encounter - Pasquale Coombs RN - 12/22/2023 10:22 AM CDT Per nursing clinical judgement, provider to review and approve the medication(s) order(s) if appropriate. Requested Prescriptions Pending Prescriptions Disp Refills Trulicity 1.5 MG/0.5ML Solution Pen-injector injection [Pharmacy Med Name: TRULICITY 1.5MG/0.5ML INJ (4 PENS)] 2 mL 2 Sig: INJECT 1.5 MG SUBQ ONCE A WEEK FOR 28 DAYS GLP-1 Agonists Protocol Passed - 12/22/2023 10:18 AM Passed - Lipid panel result on file in past 12 months LDL Date Value Ref Range Status 08/03/2023 106 <130 mg/dL Final HDL CHOLESTEROL Date Value Ref Range Status 08/03/2023 29 (L) >40 mg/dL Final CHOLESTEROL Date Value Ref Range Status 08/03/2023 155 <200 mg/dL Final TRIGLYCERIDES Date Value Ref Range Status 08/03/2023 102 <150 mg/dL Final VLDL Date Value Ref Range Status 08/03/2023 20 10 - 50 mg/dL Final CHOL/HDL RATIO Date Value Ref Range Status 08/03/2023 5.3 (H) 0.0 - 4.4 Final NON-HDL CHOLESTEROL Date Value Ref Range Status 08/03/2023 126 <130 mg/dL Final Passed - Visit with relevant provider in past 6 months or upcoming 90 days Recent Visits Date Type Provider Dept 08/13/23 Office Visit Salvatore Marx PAC [facility] 08/03/23 Office Visit Alida Hernandez APRN, ASPARAGUS BUNCHER [facility] Showing recent visits within past 182 days and meeting all other requirements Future Appointments Date Type Provider Dept 02/04/24 Appointment Evelyn, [facility] 02/11/24 Appointment Salvatore Marx PAC [facility] Showing future appointments within next 90 days and meeting all other requirements Passed - HgA1C result on record in past 6 months HGB-A1C Date Value Ref Range Status 08/03/2023 5.6 4.0 - 6.0 % Final Passed - GFR on record in past 6 months GFR, EST. NONAFRICAN Date Value Ref Range Status 08/03/2023 >60 >=60 Final documented in this encounter Plan of Treatment Upcoming Encounters Date Type Department Care Team (Late st Contact Info) Description 02/02/2025 10:00 AM GEOLOGY SCIENTIST Office Visit [facility] - Primary Care - [address] [place] [address] Salvatore Marx PAC [address] [place] [address] documented as of this encounter Visit Diagnoses Diagnosis Type 2 diabetes mellitus without complication, without long-term current use of insulin Body mass index (BMI) 60.0-69.9, adult documented in this encounter Additional Health Concerns Assessment Noted Time PHQ-9 Depression Total Score: 0 08/13/19 24 10:22 AM CDT documented as of this encounter Care Teams Affirmative Action Officer Relationship Specialty Start Date End Date Salvatore Marx, PAC [address] [place] [address] PCP - General Physician Subcontract Manager 06/25/22 Marium Dawson, CHEMICAL RADIATION TECHNICIAN, ASPARAGUS BUNCHER [address] [place] [address] Nurse Practitioner Advanced Practice Nurse 08/16/2001/24 Wesley Baumann MD [address] [place] [address] Director Of Music Therapy Cardiovascular Disease - Cardiology 07/30/21 04/20/24 Catarino Stevens MD [address] [phone] Consulting Physician Endocrinology 08/15/22 01/18/24 documented as of this encounter
--- OUTSIDE RECORDS SUMMARY | 2025-01-29 15:13 | XMS_ITS | Encounter Summary ---
Author Organization [facility] Address [address] [place] [address] Phone Care Team Providers Care Band Presser Name Role Phone Marium Dawson APRN, EDISON Unavailable [phone] Wesley Baumann MD Unavailable Salvatore Wilkins Primary Care Provider [phone] Catarino Stevens MD Unavailable Reason for Visit * Reason Comments Medication Refill Encounter Details Date Type Department Care Team (Late st Contact Info) Description 06/11/2023 Refill [facility] - Primary Care - Jeri [address] [place] [address] Salvatore Marx, PAC [address] [place] [address] Medication Refill Social History Tobacco Use Types Packs/Day Years Used Date Smoking Tobacco: Every Day Cigarettes 0.5 19.9 Started: 2005 Smokeless Tobacco: Never Alcohol Use Standard Drinks/Week Comments Not Currently 0 (1 standard drink = 0.6 oz pur e alcohol) [facility] Utilities Answer Date Recorded In the [...] Never 05/12/2023 How often do you attend yazdanism or sabianist serv ices? Never 05/12/2023 Do you belong to any clubs o r organizations such as yazdanism groups, unions, fraternal or athletic groups, or [...] Total Score - Questions 1-9 0 08/01 [facility] of Occupat ional Health - Occupational Stress [...] place to sleep or slept in a care home (including now)? Patient declined 05/12/2023 Education Answer [...] Telephone Encounter - Salvatore Marx PAC - 06/11/2023 11:54 AM CDT Refill approved. * Telephone Encounter - Nikki Lou RN - 06/11/2023 10:21 AM CDT Medication failed the protocol, provider to review and approve the medication order if appropriate. Requested Prescriptions Pending Prescriptions Disp Refills gabapentin (NEURONTIN) 100 MG Capsule [Pharmacy Med Name: GABAPENTIN 100MG CAPSULES] 60 Capsule 0 Sig: TAKE 1 CAPSULE BY MOUTH TWICE DAILY Not Delegated - Anticonvulsants Excluding Benzodiazepines Protocol Failed - 06/11/2023 10:17 AM Failed - This refill cannot be delegated Passed - Visit with relevant provider in past 12 months or upcoming 90 days Recent Visits Date Type Provider Dept 05/13/23 Office Visit Salvatore Marx PAC [facility] 02/09/23 Office Visit Sasha Quintero MD [facility] 02/05/23 Office Visit Salvatore Marx, PAC [facility] 10/22/22 Office Visit Salvatore Marx, PAC [facility] 09/11/22 Office Visit Salvatore Marx, PAC [facility] [address] [facility] 08/21/22 Office Visit Salvatore Marx, PAC [facility] 06/25/22 Office Visit Salvatore Marx, PAC [facility] Showing recent visits within past 365 days and meeting all other requirements Future Appointments Date Type Provider Dept 08/06/23 Appointment Lab, Jeri [facility] 08/13/23 Appointment Salvatore Marx, PAC [facility] Showing future appointments within next 90 days and meeting all other requirements documented in this encounter Plan of Treatment Upcoming Encounters Date Type Department Care Team (Late st Contact Info) Description 02/02/2025 10:00 AM MODELING AND SIMULATION ANALYST Office Visit [facility] - Primary Care - Jeri [address] [place] [address] Salvatore Marx PAC [address] [place] [address] documented as of this encounter Visit Diagnoses Diagnosis Tick bite of lesser toe of right foot, initial encounter documented in this encounter Additional Health Concerns Assessment Noted Time PHQ-9 Depression Total Score: 0 08/24/19 8:15 AM CDT documented as of this encounter Care Teams Band Presser Relationship Specialty Start Date End Date Salvatore Marx PAC [address] [place] [address] PCP - General Physician Collision Estimator 06/25/22 Marium Dawson, CITY CARRIER, WATCH REPAIRER [address] [place] [address] Nurse Practitioner Advanced Practice Nurse 08/16/2001/24 Wesley Baumann MD [address] [place] [address] High School Social Studies Tutor Cardiovascular Disease - Cardiology 07/30/21 04/20/24 Catarino Stevens MD [address] [phone] Consulting Physician Endocrinology 08/15/22 01/18/24 documented as of this encounter
--- OUTSIDE RECORDS SUMMARY | 2025-01-29 15:13 | XMS_ITS | Encounter Summary ---
Author Organization [facility] Address [address] [place] [address] Phone Care Team Providers Care Railroad Brake Repairer Name Role Phone Marium Dawson APRN, EDISON Unavailable [phone] Wesley Baumann MD Unavailable Salvatore Wilkins Primary Care Provider [phone] Catarino Stevens MD Unavailable Reason for Visit * Reason Comments Medication Refill Encounter Details Date Type Department Care Team (Late st Contact Info) Description 05/15/2023 Refill [facility] - Primary Care - Jeri [address] [place] [address] Salvatore Marx, PAC [address] [place] [address] Medication Refill Social History Tobacco Use Types Packs/Day Years Used Date Smoking Tobacco: Every Day Cigarettes 0.5 19.9 Started: 2005 Smokeless Tobacco: Never Alcohol Use Standard Drinks/Week Comments Not Currently 0 (1 standard drink = 0.6 oz pur e alcohol) [facility] Utilities Answer Date Recorded In the [...] Never 05/12/2023 How often do you attend hinduism or jewish serv ices? Never 05/12/2023 Do you belong to any clubs o r organizations such as hinduism groups, unions, fraternal or athletic groups, or [...] Total Score - Questions 1-9 0 08/01 [facility] of Occupat ional Health - [...] place to sleep or slept in a fdc (including now)? Patient declined 05/12/2023 Education Answer [...] encounter Miscellaneous Notes * Telephone Encounter - Pasquale Coombs RN - 05/15/2023 2:25 PM CDT Medication(s) refilled and signed per [facility] Chronic Medication Refill Standing Order for Pediatricand Adult Patients. Requested Prescriptions Pending Prescriptions Disp Refills levothyroxine (SYNTHROID) 137 MCG Tablet [Pharmacy Med Name: LEVOTHYROXINE 0.137MG (137MCG) TAB] 180 Tablet 0 Sig: Take 2 Tablets by mouth daily. Thyroid Hormones Protocol Passed - 05/15/2023 2:18 PM Passed - Visit with relevant provider in past 12 months or upcoming 90 days Recent Visits Date Type Provider Dept 05/13/23 Office Visit Salvatore Marx, JUAN JO[facility] 02/09/23 Office Visit Sasha Quintero MD [facility] 02/05/23 Office Visit Salvatore Marx, JUAN JOSE [facility] 10/22/22 Office Visit Salvatore Marx, JU[facility] JOSE [facility] 09/11/22 Office Visit Salvatore Marx, PAC [facility] 08/21/22 Office Visit Salvatore Marx, PAC [facility] 06/25/22 Office Visit Salvatore Marx, PAC [facility] 05/28/22 Office Visit Francisco J Salvatore Lake, PAC [facility] Showing recent visits within past 365 days and meeting all other requirements Future Appointments Date Type Provider Dept 08/06/23 Appointment Evelyn, Jeri [facility] 08/13/23 Appointment Marx Salvatore Lake, PAC [facility] [address] [facility] Showing future appointments within next 90 days and meeting all other requirements Passed - Normal TSH in past 12 months TSH Date Value Ref Range Status 12/11/2022 1.907 0.300 - 5.000 mIU/L Final documented in this encounter Plan of Treatment Upcoming Encounters Date Type Department Care Team (Late st Contact Info) Description 02/02/2025 10:00 AM HOSPITAL SECURITY OFFICER Office Visit [facility] - Primary Care - [place] [address] [place] [address] Salvatore Marx PAC [address] [place] [address] documented as of this encounter Visit Diagnoses Diagnosis 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 documented in this encounter Additional Health Concerns Assessment Noted Time PHQ-9 Depression Total Score: 0 08/24/19 21 8:15 AM CDT documented as of this encounter Care Teams Railroad Brake Repairer Relationship Specialty Start Date End Date Salvatore Marx PAC [address] [place] [address] PCP - General Physician Deputy Coroner Investigator 06/25/22 Marium Dawson, STUDENT ADMISSIONS CLERK, LANDS RESOURCE MANAGER [address] [place] [address] Nurse Practitioner Advanced Practice Nurse 08/16/2001/24 Wesley Baumann MD [address] [place] [address] Folding Machine Operator Cardiovascular Disease - Cardiology 07/30/21 04/20/24 Catarino Stevens MD [address] [phone] Consulting Physician Endocrinology 08/15/22 01/18/24 documented as of this encounter
--- OUTSIDE RECORDS SUMMARY | 2025-01-29 15:13 | XMS_ITS | Clinical Summary ---
Author Organization [facility] Address [address] [place] [address] Phone Care Team Providers Care Production Pattern Maker Name Role Phone Salvatore Marx Primary Care Provider Allergies No known active allergies Medications Blood Glucose Monitoring Suppl DeviceIndicatio ns:Type 2 diabetes mellitus without complication, without long-term current use of insulin Check blood sugar once daily. 1 Each 3 Active IBUPROFEN PO Take by mouth if needed. Active Glucose Blood StripIndication s:Type 2 diabetes mellitus without complication, without long-term current use of insulin Test once daily. 100 Strip 3 4 Active Lancets MiscIndications :Type 2 diabetes mellitus without complication, without long-term current use of insulin Test once daily 100 Lancet . 3 4 Active levothyroxine (SYNTHROID) 137 MCG TabletIndicatio ns:Hypothyroidi sm due to Zahra's thyroiditis Take 2 Tablets by mouth daily. 180 Tablet 5 Active lisinopril-hydr oCHLOROthiazide (PRINZIDE, ZESTORETIC) 20-25 MG Tablet Take 1 Tablet by mouth daily. 90 Tablet 3 5 Active omeprazole (PriLOSEC) 40 MG CAPSULE DELAYED RELEASEIndicati ons:Gastroesoph ageal reflux disease without esophagitis Take 1 Capsule by mouth daily. 90 Capsule 5 Active Dulaglutide (Trulicity) 1.5 MG/0.5ML Solution Auto-injectorIn dications:Type 2 diabetes mellitus without complication, without long-term current use of insulin 1.5 mg by Subcutaneous route once a week. 2 mL 5 Active Active Problems Problem Noted Date Diagnosed Date Type 2 diabetes mellitus wit hout complication, without long-term current use of insulin 09/09/2022 Laryngeal spasm 07/02/2021 Overview (07/19/2021): Last Assessment & Plan: Pepcid 40 mg twice daily Referral to Sleep Medicine LPR discussed and Handout provided ABDOUL (obstructive sleep apnea) 07/02/2021 Overview (07/19/2021): Last Assessment & Plan: Pepcid 40 mg twice daily Referral to Sleep Medicine Body mass index (BMI) 60.0-69.9, adult 2 Overview (07/19/2021): Last Assessment & Plan: Pepcid 40 mg twice daily Referral to Sleep Medicine Tension type headache 11/19/2019 Acquired hypothyroidism 10/27/2018 Tobacco abuse 10/27/2018 Primary hypertension 10/27/2018 Resolved Problems Problem Noted Date Diagnosed Date Resolved Date Class 3 severe obesity due t o excess calories with serious comorbidity and body mass index (BMI) of 50.0 to 59.9 in adult 10/27/2018 2 Encounters Date Type Department Care Team Description 01/20/2025 9:20 AM GREENHOUSE LABORER Lab [facility] - Primary Care - [place] [address] [place] [address] ABDOUL (obstructive sleep apnea); Type 2 diabetes mellitus without complication, without long-term current use of insulin; Primary hypertension; 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; Gastroesophageal reflux disease without esophagitis Discharge Disposition: Discharged to home or Selfcare 01/20/2025 Travel from Last 3 Months Immunizations Immunization Administration Dates Next Due Covid-19 Vaccine, Vector-nr, [id number], Pf, 0.5 Ml (VGTel/J&J) 08/17/2020 Influenza Vaccine, Quadrivalent, PF 12/12/2017 TDAP Vaccine 09/12/2016 Family History Medical History Relation Name Comments Diabetes Father High Cholesterol Father Hypertension Father Kidney Disease Father No Known Problems Mother Heart Disease Sister 1 Heart Disease Sister 2 Relation Name Status Comments Father Mother Alive Sister 1 Alive Sister 2 Alive Social History Tobacco Use Types Packs/Day Years Used Date Smoking Tobacco: Every Day Cigarettes 0.5 19.9 Started: 2006 Passive Smoke Exposure: Current Smokeless Tobacco: Never Tobacco Cessation:Ready to Q uit: No; Counseling Given: Yes Alcohol Use Standard Drinks/Week Comments Yes 0 (1 standard drink = 0.6 oz pur e alcohol) rare [facility] Utilities Answer Date Recorded In the past [...] Never 05/12/2023 How often do you attend christianity or yarsani serv ices? Never 05/12/2023 Do you belong to any clubs o r organizations such as christianity groups, unions, fraternal or athletic groups, or [...] Recorded Total Score - Questions 1-9 0 10/01 [employer] of Occupat ional [facility] - Occupational Stress Questionnaire Answer Date Recorded [...] place to sleep or slept in a intermediate (including now)? Patient declined 05/12/2023 Education Answer [...] Sign Reading Time Taken Comments Blood Pressure 164/94 10/21/2024 4:40 PM CDT Pulse 88 10/21/2024 4:40 PM CDT Temperature 37.4 C (99.3 F) 10/21/2024 4:40 PM CDT Respiratory Rate 20 10/21/2024 4:40 PM CDT Oxygen Saturation 97% 10/21/2024 4:40 PM CDT Inhaled Oxygen Concentration - - Weight 150.6 kg (332 lb) 10/21/2024 4:40 PM CDT Height 160 cm (5' 3) 08/13/2023 10:19 AM CDT Body Mass Index 58.81 08/13/2023 10:19 AM CDT Plan of Treatment Upcoming Encounters Date Type Department Care Team (Late st Contact Info) Description 02/02/2025 10:00 AM GREENHOUSE LABORER Office Visit [facility] - Primary Care - [place] [address] [place] [address] Salvatore Marx PAC [address] [place] [address] Health Maintenance Due Date Last Done Comments Diabetes: Foot Exam 1986 Hepatitis C Virus (HCV) Screening 1986 Varicella Immunization (1 of 2 - 13+ 2-dose series) 1999 Hepatitis B Immunization (1 of 3 - 19+ 3-dose series) 2005 Pneumococcal Immunization Combined (1 of 2 - PCV) 2005 Human Papillomavirus (HPV) Immunization (1 - 3-dose SCDM series) 2013 Diabetes: Eye Exam 08/12/2024 08/13/2023 Influenza Immunization (#1) 2024 12/12/2017 SARS-COV-2 Immunization (2 - season) 2024 08/17/2020 Diabetes: Hemoglobin A1c 07/20/2025 025, 02/04/2024, 08/03/2023, Additional history exists Diabetes: Nephropathy Screening 01/20/2026 01/20/2025, 02/04/2024, 08/03/2023, Additional history exists Td Immunization Every 10 Years (Adults With 1 Tdap) 09/12/2026 09/12/2016 Respiratory Syncytial Virus (RSV) Immunization (Adult) (1 - 1-dose 75+ series) 2061 DTaP/Tdap/Td Immunization Discontinued 09/12/2016 Meningococcal Immunization (ACWY) Aged Out No longer eligible based on patient's age to complete this topic Rotavirus Immunization Aged Out No lo nger eligible based on patient's age to complete this topic Procedures Procedure Name Priority Date/Time Associated Diagnosis Comments THYROID SCREEN WITH REFLEX Routine 01/20/2025 9:23 AM GREENHOUSE LABORER 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 CBC WITH AUTO DIFFERENTIAL Routine 01/20/2025 9:23 AM GREENHOUSE LABORER ABDOUL (obstructive sleep apnea) ANTI THYROID PEROXIDASE ANTIBODY Routine 01/20/2025 9:23 AM GRE[employer]HOUSE LABORER 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 THYROXINE (T4) FREE Routine 01/20/2025 9 :23 AM GRE[employer]HOUSE LABORER 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 THYROID SCREEN WITH REFLEX Routine 01/20/2025 9:23 AM GRE[employer]HOUSE LABORER 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 LIPID PANEL Routine 01/20/2025 9:23 AM GREENHOUSE LABORER Type 2 diabetes mellitus without complication, without long-term current use of insulin CMP (COMPREHENSIVE METABOLIC PANEL) Routine 01/20/2025 9:23 AM GREENHOUSE LABORER Type 2 diabetes mellitus without complication, without long-term current use of insulin Primary hypertension HEMOGLOBIN A1C W/ ESTIMATED GLUCOSE Routine 01/20/2025 9:23 AM GREENHOUSE LABORER Type 2 diabetes mellitus without complication, without long-term current use of insulin COMPLETE BLOOD COUNT (CBC) WITH DIFF Routine 01/20/2025 9:23 AM GREENHOUSE LABORER ABDOUL (obstructive sleep apnea) DIABETIC BILATERAL RETINAL IMAGING WITH COMPUTERIZED INTERPRETATION Routine 08/13/2023 10:37 AM CDT Type 2 diabetes mellitus without complication, without long-term current use of insulin (HCC) from Last 3 Months or Most Recently Relevant to Health Maintenance Results * (ABNORMAL) THYROID SCREEN WITH REFLEX (01/20/2025 9:23 AM GREENHOUSE LABORER) TSH 9.808(H) 0.300 - 5.000 mIU/L 01/20/2025 1:21 PM GREENHOUSE LABORER [facility] Blood Venipuncture / Unknown 01/20/2025 9:23 AM GREENHOUSE LABORER 01/20/2025 9:23 AM GREENHOUSE LABORER Salvatore Marx PAC CHEMISTRY ORDERABLES Final R esult Performing Organization Address City/[facility]/ZIP Co de Phone Number [facility] [address] [place] [address] * HEMOGLOBIN A1C W/ ESTIMATED GLUCOSE (01/20/2025 9:23 AM GREENHOUSE LABORER) Pathologist [facility] HGB-A1C 5.9 4.0 - 6.0 % 01/20/2025 12:55 PM GREENHOUSE LABORER [facility] Est Average Glucose 122.6 mg/dL 01/20/2025 12:55 PM GREENHOUSE LABORER [facility] Blood Venipuncture / Unknown 01/20/2025 9:23 AM GREENHOUSE LABORER 01/20/2025 9:23 AM GREENHOUSE LABORER Narrative [facility] - 01/20/2025 12:55 PM GREENHOUSE LABORER HEMOGLOBIN A1C: DIABETIC PATIENTS: WELL-CONTROLLED: 6.2 - 7.0 INTERMEDIATE WELL-CONTROLLED: 7.0 - 9.0 POORLY-CONTROLLED: >9.0 Specimens containing greater than 5% of Hemoglobin F may result in lower than expected % HbA1C results. us Salvatore Marx PAC CHEMISTRY ORDERABLES Final R esult [facility] [address] [place] [address] * (ABNORMAL) CBC WITH AUTO DIFFERENTIAL (01/20/2025 9:23 AM GREENHOUSE LABORER) WBC 11.20 4.00 - 12.00 10(3)/mcL 01/20/2025 12:[address] [facility] RBC 4.93 3.80 - 5.30 10(6)/mcL 01/20/2025 12:[address] [facility] HEMOGLOBIN (HGB) 15.0 12.0 - 15.8 g/dL 01/20/2025 12:[address] [facility] HEMATOCRIT (HCT) 45.4 36.0 - 47.0 % 01/20/2025 12:[address] [facility] MCV 92.1 82.0 - 96.0 fL 01/20/2025 12:[address] [facility] MCH 30.4 26.0 - 34.0 pg 01/20/2025 12:[address] [facility] MCHC 33.0 31.0 - 36.0 g/dL 01/20/2025 12:[address] [facility] PLATELET COUNT 279 140 - 440 10(3)/mcL 01/20/2025 12:[address] [facility] RDW 13.1 11.8 - 15.5 % 01/20/2025 12:[address] [facility] MPV 11.0 9.7 - 12.4 fL 01/20/2025 12:[address] [facility] NEUTROPHILS 64.4 47.0 - 73.0 % 01/20/2025 12:[address] [facility] LYMPHOCYTES 25.4 18.0 - 42.0 % 01/20/2025 12:[address] [facility] MONOCYTES 7.1 4.0 - 12.0 % 01/20/2025 12:[address] [facility] EOSINOPHILS 2.1 0.0 - 5.0 % 01/20/2025 12:[address] [facility] BASOPHILS 0.5 0.0 - 1.0 % 01/20/2025 12:[address] [facility] IMMATURE GRANULOCYTE 0.5(H) 0.0 - 0.4 % 01/20/2025 12:[address] [facility] Comment:Immature Granulocyte s includes Metamyelocytes, Myelocytes, and Promyelocytes. ABSOLUTE NEUTROPHILS 7.21 1.60 - 7.70 10(3)/[facility] 01/20/2025 12:47 PM GREENHOUSE LABORER [facility] ABSOLUTE LYMPHOCYTES 2.85 1.30 - 3.20 10(3)/[facility] 01/20/2025 12:47 PM GREENHOUSE LABORER [facility] ABSOLUTE MONOCYTES 0.79 0.20 - 1.00 10(3)/[facility] 01/20/2025 12:47 PM GREENHOUSE LABORER [facility] ABSOLUTE EOSINOPHIL 0.23 0.00 - 0.40 10(3)/[facility] 01/20/2025 12:47 PM GREENHOUSE LABORER [facility] ABSOLUTE BASOPHILS 0.06 0.00 - 0.10 10(3)/[facility] 01/20/2025 12:47 PM GREENHOUSE LABORER [facility] ABSOLUTE IMMATURE GRANULOCYTE 0.06(H) 0.00 - 0.03 10 (3) [facility]. 01/20/2025 12:47 PM GREENHOUSE LABORER [facility] NRBC PER 100 WBC 0 01/21/20 12:47 PM GREENHOUSE LABORER [facility] Blood Venipuncture / Unknown 01/20/2025 9:23 AM GREENHOUSE LABORER 01/20/2025 9:23 AM GREENHOUSE LABORER us Salvatore Marx PAC HEMATOLOGY ORDERABLES Final Result [facility] [address] [place] [address] * THYROXINE (T4) FREE (01/20/2025 9:23 AM GREENHOUSE LABORER) Pathologist [facility] T4 FREE 0.7 0.7 - 1.9 ng/dL 01/20/2025 1:51 PM GREENHOUSE LABORER [facility] Blood Venipuncture / Unknown 01/20/2025 9:23 AM GREENHOUSE LABORER 01/20/2025 9:23 AM GREENHOUSE LABORER us Salvatore Marx PAC CHEMISTRY ORDERABLES Final R esult [facility] [address] [place] [address] * (ABNORMAL) LIPID PANEL (01/20/2025 9:23 AM GREENHOUSE LABORER) CHOLESTEROL 158 <200 mg/dL 01/20/2025 1:21 PM GREENHOUSE LABORER [facility] TRIGLYCERIDES 76 <150 mg/dL 01/20/2025 1:21 PM GREENHOUSE LABORER [facility] HDL CHOLESTEROL 27(L) >40 mg/dL 1:21 PM GREENHOUSE LABORER [facility] LDL 116 <130 mg/dL 01/20/2025 1:21 PM GREENHOUSE LABORER [facility] VLDL 15 10 - 50 mg/dL 01/20/2025 1:[address] [facility] CHOL/HDL RATIO 5.9(H) 0.0 - 4.4 01/20/2025 1:21 PM GREENHOUSE LABORER [facility] NON-HDL CHOLESTEROL 131(H) <130 mg/dL 01/20/2025 1:21 PM GREENHOUSE LABORER [facility] IS THE PATIENT REQUIRED TO BE FASTING? Yes 01/20/2025 1:[address] [facility] HAS THE PATIENT BEEN FASTING? Yes 01/20/2025 1:[address] [facility] Blood Venipuncture / Unknown 01/20/2025 9:23 AM GREENHOUSE LABORER 01/20/2025 9:23 AM GREENHOUSE LABORER us Salvatore Marx PAC CHEMISTRY ORDERABLES Final R esult [facility] [address] [place] [address] * (ABNORMAL) CMP (COMPREHENSIVE METABOLIC PANEL) (01/20/2025 9:23 AM GREENHOUSE LABORER) SODIUM 143 136 - 145 mmol/L 01/20/2025 1:21 PM GREENHOUSE LABORER [facility] POTASSIUM 4.4 3.5 - 5.1 mmol/L 01/20/2025 1:[address] [facility] CHLORIDE 108(H) 98 - 107 mmol/L 01/20/2025 1:[address] [facility] CO2, VENOUS 28 22 - 30 mmol/L 01/20/2025 1:[address] [facility] ANION GAP 11.4 <18.0 mmol/L 01/20/2025 1:[address] [facility] GLUCOSE 104(H) 70 - 99 mg/dL 01/20/2025 1:[address] [facility] BUN 8 5 - 18 mg/dL 01/20/2025 1:[address] [facility] CREATININE, BLOOD 0.68 0.60 - 1.00 mg/dL 01/20/2025 1:[address] [facility] BUN/CREATININE RATIO 12 12 - 20 ratio 01/20/2025 1:[address] [facility] TOTAL PROTEIN 7.1 6.0 - 8.0 g/dL 01/20/2025 1:[address] [facility] ALBUMIN 3.8 3.5 - 5.0 g/dL 01/20/2025 1:[address] [facility] A/G RATIO 1.2 1.0 - 2.2 01/20/2025 1:[address] [facility] CALCIUM 8.7 8.7 - 10.5 mg/dL 01/20/2025 1:[address] [facility] T BILI 0.3 0.2 - 1.2 mg/dL 01/20/2025 1:[address] [facility] SGOT (AST) 17 <43 U/L 01/20/2025 1:[address] [facility] SGPT (ALT) 15 <56 U/L 01/20/2025 1:[address] [facility] ALKALINE PHOSPHATASE 59 40 - 150 U/L 01/20/2025 1:[address] [facility] IS THE PATIENT REQUIRED TO BE FASTING? Yes 01/20/2025 1:21 PM GREENHOUSE LABORER [facility] HAS THE PATIENT BEEN FASTING? Yes 01/20/2025 1:21 PM GREENHOUSE LABORER [facility] GFR, ESTIMATED >60 >=60 01/20/2025 1:21 PM GREENHOUSE LABORER [facility] Comment: Creatinine Clearance is the preferred criteria for selecting drug dose adjustments in renally impaired patients. The GFR is provided as additional pertinent clinical information. GFR is reported in mL/min/1.73 sq m. Calculation based on the 2020 Chronic Kidney Disease Epidemiology Collaboration (CKD-EPI) equation refit without adjustment for race. GFR, EST. >60 >=60 025 1:21 PM GREENHOUSE LABORER [facility] Comment: Creatinine Clearance is the preferred criteria for selecting drug dose adjustments in renally impaired patients. The GFR is provided as additional pertinent clinical information. GFR is reported in mL/min/1.73 sq m. Calculation based on the 2009 Chronic Kidney Disease Epidemiology Collaboration (CKD-EPI). GFR, EST. NONAFRICAN >60 >=60 01/20/2025 1:21 PM GREENHOUSE LABORER [facility] Comment: Creatinine Clearance is the preferred criteria for selecting drug dose adjustments in renally impaired patients. The GFR is provided as additional pertinent clinical information. GFR is reported in mL/min/1.73 sq m. Calculation based on the 2009 Chronic Kidney Disease Epidemiology Collaboration (CKD-EPI). Blood Venipuncture / Unknown 01/20/2025 9:23 AM GREENHOUSE LABORER 01/20/2025 9:23 AM GREENHOUSE LABORER us Salvatore Marx PAC CHEMISTRY ORDERABLES Final R esult [facility] [address] [place] [address] * (ABNORMAL) ANTI THYROID PEROXIDASE ANTIBODY (01/20/2025 9:23 AM GREENHOUSE LABORER) Thyroid peroxidase antibody 1,520(H) <6 IU/mL 01/21/2025 1:13 AM GREENHOUSE LABORER [facility] Blood Venipuncture / Unknown 01/20/2025 9:23 AM GREENHOUSE LABORER 01/20/2025 9:23 AM GREENHOUSE LABORER Salvatore Marx PAC CHEMISTRY ORDERABLES Final R esult [facility] [address] [place] [address], [place] * DIABETIC BILATERAL RETINAL IMAGING WITH COMPUTERIZED INTERPRETATION (08/13/2023 10:37 AM CDT) DIABETIC BILATERAL DIGITAL RETINAL IMAGING No Diabetic Retinopathy Detected: ETDRS level 20 or lower and no Diabetic Macular Edema [facility] Comment: Next Steps: Retest in 12 months IDx Submission ID: [id number] Results were produced by a system that provides an artificial intelligence (AI) interpretation A positive result indicates a high risk of diabetic retinopathy with a severity of ETDRS level 35 or higher and/or macular edema. IDx-DR diabetic retinopathy exam does not replace a comprehensive eye exam. Other 08/13/2023 10:3 7 AM CDT Salvatore Marx PAC OUTPT PROCEDURE ORDERABLES F inal Result EXTERNAL EKG [facility] from Last 3 Months or Most Recently Relevant to Health Maintenance [place] [address] [address] Care Teams Production Pattern Maker Relationship Specialty Start Date End Date Salvatore Marx, PAC [address] [place] [id number] PCP - General Physician Diamond Saw Operator 06/25/22
[2025-01-29 15:16] VITALS: BP 147/84; PULSE 80; RESP 20; TEMP 36.6; O2SAT 98
[2025-01-29 15:34] LABS: EDCOVIDSCREEN Positive (Negative)
--- NOTE | 2025-01-29 15:41 | ED.URI ---
HPI - URI/Sore Throat General Chief Complaint: Upper Respiratory Infection Stated Complaint: home test positive covid Time Seen by Provider: 01/29/25 15:30 Source: patient and RN notes reviewed Mode of arrival: ambulatory Limitations: no limitations History of Present Illness HPI Narrative: 39-year-old female presents [facility] complaining of positive COVID test. Patient says she needs a confirmation test for her employer. Symptoms started yesterday, her sister tested positive for COVID before her. She was exposed to her sister. Patient reports cough, congestion, sore throat, body aches and chills. Patient denies any other upper respiratory symptoms, fevers, nausea vomiting, diarrhea, chest pain, difficulty breathing, wheezing, shortness of breath, or any other symptom. Patient's intake and help with symptoms. Says she has a history of diabetes. Patient denies any other significant past medical history. Related Data Home Medications ?Medication ?Instructions ?Recorded ?Confirmed ?Last Taken ?Type levothyroxine 175 mcg tablet 175 mcg PO DAILY 04/07/22 04/07/22 Unknown History lisinopril 20 tablet 04/07/22 Unknown History mg-hydrochlorothiazide 25 mg tablet dulaglutide 1.5 mg/0.5 mL mg subcut 01/29/25 Unknown History subcutaneous pen injector (Trulicity) Allergies Allergy/AdvReac Type Severity Reaction Status Date / Time No Known Allergies Allergy Unknown Verified 01/29/25 15:20 Review of Systems Review of Systems: CONSTITUTIONAL: Denies fever, sweats. Positive for body aches and chills. EYES: Denies visual changes, redness, or discharge. ENT: Positive for congestion, sore throat. Negative for rhinorrhea or otalgia. CARDIOVASCULAR: Denies chest pain, palpitations, or edema. RESPIRATORY: Positive for cough. Negative for wheezing or Dyspnea. GASTROINTESTINAL: Denies abdominal pain, nausea, vomiting, or diarrhea. GENITOURINARY: Denies dysuria or hematuria. SKIN: Denies rash or itching. MUSCULOSKELETAL: Denies back pain, joint pain, or myalgia. NEUROLOGIC: Denies headache, numbness, or weakness. PSYCHIATRIC: Denies anxiety or depression. All other systems reviewed are negative, except as documented in HPI. [facility] Past Medical History Medical History Anxiety Depression Hypothyroidism Diabetes Back pain Fractures Urinary tract infection Kidney stone Abnormal uterine bleeding PID (acute pelvic inflammatory disease) Smoker Morbid obesity Surgical History Surgical History H/O: H/O dilation and curettage Hx of cholecystectomy Family History Family History Other Diabetes mellitus Social History Social History Smoking packs per day: 0.75 Smoking cigarettes per day: 15.0 Smoking status: Current every day smoker Alcohol intake: current Substance use: never Additional living arrangements comments: Lives with boyfriend Gender identity (if verbalized by the patient): Female Sexual Orientation (if Verbalized by the Patient): Straight or Heterosexual Spiritual care concerns: No Comments At the time of my signature, I reviewed and agree with the nursing past medical, surgical, social, and family history. There is no relevant family history pertinent to the patient complaint. Exam Narrative: GENERAL: This is a well-nourished, well-developed adult, in no apparent distress. They are non ill-appearing, nontoxic appearing. Patient is obese. HEAD: normocephalic, atraumatic. EYES: Sclera clear/white. Conjunctiva normal. Vision is grossly intact. Extraocular movements intact EARS: External ears normal, auditory canals clear and without drainage, TMs normal without perforation. Hearing grossly intact. NOSE: External nose normal with no obvious nasal discharge, nasal turbinates erythematous, no rhinorrhea. THROAT: Mucous membranes moist, posterior pharynx erythematous. Tonsils 2+ erythematous. Uvula midline. Postnasal drip present. NECK: Neck supple, non-tender without lymphadenopathy, masses or thyromegaly. CARDIOVASCULAR: Regular rate and rhythm without murmurs, gallops, or rubs. RESPIRATORY: Clear to auscultation. Breath sounds equal bilaterally. No wheezes, rales, or rhonchi. SKIN: warm, Dry, intact with no suspicious lesions or rash, good texture and turgor. NEURO: awake, alert, and oriented to person, place and time. There were no obvious focal neurologic abnormalities. EXTREMITIES: No joint tenderness, effusion, or edema noted. BACK: Nontender without deformity. Course Course Emergency Course: Portions of this record may have been created with voice recognition software Level of Care: Express Care Visit Vital Signs Vital signs: Vital Signs Temperature 97.9 F 01/29/25 15:16 Pulse Rate 80 01/29/25 15:16 Respiratory Rate 20 01/29/25 15:16 Blood Pressure 147/84 H 01/29/25 15:16 Pulse Oximetry 98 01/29/25 15:16 Oxygen Delivery Room Air 01/29/25 15:16 Temperature 97.9 F 01/29/25 15:16 Pulse Rate 80 01/29/25 15:16 Respiratory Rate 20 01/29/25 15:16 Blood Pressure 147/84 H 01/29/25 15:16 Pulse Oximetry 98 01/29/25 15:16 Oxygen Delivery Room Air 01/29/25 15:16 Reviewed MDM - URI/Sore Throat MDM Narrative Medical decision making narrative: Rapid COVID is positive. Symptoms consistent with COVID infection. Discussed supportive care. Patient nontoxic appearing, vital signs hemodynamically stable, patient no apparent distress. Discussed physical exam findings. Advised supportive measures and signs/symptoms to go to the ER. Pt is appropriate for outpt treatment and f/u. Differential Diagnosis Differential diagnosis: Likely upper respiratory infection, sinusitis, viral infection and pharyngitis Lab Data Attestation: I reviewed the patient's lab results. Labs: Lab Results 01/29/25 Range/Units 15:32 POC SARS CoV-2 Ag Positive (Negative) Critical Care Time Critical Care Time Critical Care Time: No Discharge Plan Discharge Clinical Impression: COVID Patient Disposition: Home Condition: Stable Instructions: COVID-19 (Coronavirus Disease 2019) (ED) Additional Instructions: You should avoid crowds until you are fever free for 24 hours without the use of fever reducing medications, or the symptoms are improved Rest. Drink plenty of fluids. You may take ibuprofen 600 mg to 800 mg every 6-8 hours. Do not exceed more than 800 mg of ibuprofen per dose. Do not exceed more than 3200 mg ibuprofen in a day. You may take up to 1000 mg Tylenol every 6-8 hours. Do not exceed 1000 mg per dose, do exceed more than 4000 mg of Tylenol in a day. If you are taking DayQuil NyQuil do not take additional Tylenol as it artery contains Tylenol in it. Recommend Flonase spray and Zyrtec (or Claritin/Luli) for sinus pressure/congestion over the counter Cough syrup may cause drowsiness; avoid driving or take it at night time. Follow up with your primary care provider in 3-5 days Go to the ER for difficulty breathing, unable to catch her breath, unable to talk in full sentences, chest pains, vomiting, weakness, worsening symptoms or any serious concerns Patient Language: Danish Prescriptions: No Action levothyroxine 175 mcg tablet 175 mcg PO DAILY lisinopril-hydrochlorothiazide 20-25 mg tablet Trulicity 1.5 mg/0.5 mL pen injector SUBCUT Follow-up/Referrals: Francisco J,[facility] [place]. [Primary Care Provider, Unknown] Stand Alone Forms: Work/School Release IP Time of Disposition: 15:36
== END 2025-01-29 15:42 | disposition home or self-care (01) ==
PROVIDERS: PCP Physician Assistant
DX: U07.1 COVID-19 (principal); F17.210 Nicotine dependence, cigarettes, uncomplicated; E11.9 Type 2 diabetes mellitus without complications; Z79.85 Long-term (current) use of injectable non-insulin antidiabetic drugs; E03.9 Hypothyroidism, unspecified; E66.01 Morbid (severe) obesity due to excess calories; Z68.43 Body mass index [BMI] 50.0-59.9, adult
CPT/HCPCS: 87426; 99212; G0463